=== PATIENT | female | born 1990 | race African-American/Black ===

== ENCOUNTER 2019-01-30 08:31 | Observation (INO) | payer MEDICAID ==
[2019-01-30] MEDS ORDERED: NORMAL SALINE 1000 ML 1,000 ML IV ONE ×2 (09:12→09:40)
[2019-01-30] MEDS ORDERED: ONDANSETRON HCL INJ/PF 4 MG/2 ML SDV IV ONE (09:13)
[2019-01-30] MEDS ORDERED: MORPHINE SULFATE 10 MG/ML INJ IV ONE (09:13)
--- NOTE | 2019-01-30 09:19 | ER Document Report ---
ED General - General Chief Complaint: Abscess Stated Complaint: POSSIBLE ABSCESS Time Seen by Provider: 01/30/19 08:53 Notes: 28-year-old female with past medical history of diabetes on insulin presents with abscess to right buttock for 4 days. Patient states it started off as a "small pimple" and has progressively gotten worse. Patient states it is draining. Patient states she has had a subjective fever, nausea, right lower pelvic/abdominal pain. Patient states she has had an abscess to her jaw that required surgical intervention previously. Patient states she has not been checking her blood sugars for the last couple days. TRAVEL OUTSIDE OF THE [place] IN LAST 30 DAYS: No - Related Data Allergies/Adverse Reactions: tramadol [Tramadol] Allergy (Unknown, Verified 10/17/13 21:32) Bee Sting Kit *RETIRED-04/21/10 [Bee Sting Kit] Allergy (Verified 10/17/13 21:32) Coconut * [Coconut] Allergy (Verified 10/17/13 21:32) pineapple [Pineapple] Allergy (Verified 10/17/13 21:32) Past Medical History - Social History Smoking Status: Never Smoker Chew tobacco use (# tins/day): No Frequency of alcohol use: None Drug Abuse: None Family History: Reviewed & Not Pertinent Patient has suicidal ideation: No Patient has homicidal ideation: No - Past Medical History Cardiac Medical History: Reports: Hx Hypertension Pulmonary Medical History: Reports: Hx Asthma Neurological Medical History: Reports: Hx Migraine Endocrine Medical History: Reports: Hx Diabetes Mellitus Type 2 - insulin dependent Renal/ Medical History: Reports: Hx Ovarian Cysts GI Medical History: Reports: Hx Gastroesophageal Reflux Disease Musculoskeletal Medical History: Reports Hx Arthritis Psychiatric Medical History: Reports: Hx Anxiety, Hx Depression - Immunizations Immunizations up to date: Yes Hx Diphtheria, Pertussis, Tetanus Vaccination: Yes Review of Systems - Review of Systems Notes: Constitutional: Positive for subjective fever. HENT: Negative for sore throat. Eyes: Negative for visual changes. Cardiovascular: Negative for chest pain. Respiratory: Negative for shortness of breath. Gastrointestinal: Positive for nausea. Negative for vomiting or diarrhea. Genitourinary: Negative for dysuria. Musculoskeletal: Negative for back pain. Skin: Negative for rash. Neurological: Negative for headaches, weakness or numbness. 10 point ROS negative except as marked above and in HPI. Positive for abscess. Physical Exam - Vital signs Vitals: Temp Pulse Resp BP Pulse Ox 98.0 F 106 H 18 117/74 98 01/30/19 08:40 01/30/19 08:40 01/30/19 08:40 01/30/19 08:40 01/30/19 08:40 - Notes Notes: GENERAL: Well-appearing, well-nourished and uncomfortable. HEAD: Atraumatic, normocephalic. EYES: Extraocular movements intact, sclera anicteric, conjunctiva are normal. NECK: Normal range of motion, supple without lymphadenopathy or JVD. LUNGS: Breath sounds clear to auscultation bilaterally and equal. No wheezes rales or rhonchi. HEART: Regular rate and rhythm without murmurs, rubs or gallops. ABDOMEN: Soft, nontender, normoactive bowel sounds. No guarding, no rebound. No masses appreciated. : Large indurated area with erythema noted right lower buttock extending to near rectum. Area is warm to touch. Opening noted with mild discharge. Odor noted. EXTREMITIES: Normal range of motion, no pitting or edema. No clubbing or cyanosis. NEUROLOGICAL: Cranial nerves II through XII grossly intact. Normal speech, normal gait. PSYCH: Normal mood, normal affect. SKIN: Warm, Dry, normal turgor, no rashes or lesions noted. Course - Re-evaluation Re-evalutation: 01/30/19 28-year-old diabetic on insulin female presents for abscess to right buttock for 4 days. Patient has not been checking her blood sugars the last couple days. Patient states it started off as a "small pimple" and has progressively gotten worse. Right lower buttock has a large area of induration and erythema that extends near rectum. Concern for involvement of rectum. CT with IV contrast ordered. Lab work also initiated. Morphine and Zofran ordered. 01/30/19 09:45 Accucheck 479. 2nd IV bolus ordered. 01/30/19 10:49 WBC elevated. Chemistry shows AG of 11 with elevated blood sugar. Insulin 10 units IV ordered. Pt also requesting more pain medications. Dilaudid ordered. 01/30/19 12:[address] Nair who states to admit pt for observation. Clindamycin IV ordered. Discussed results and admission with pt. Pt asking for more pain medication. 01/30/19 12:[address] Witt who states pt will go to [facility]. 01/30/19 12:51 Discussed pt with JOSSELYN Rodriguez who states pt can go to medical floor. - Vital Signs Vital signs: Temp Pulse Resp BP Pulse Ox 98.0 F 106 H 12 122/78 99 01/30/19 08:40 01/30/19 08:40 01/30/19 11:08 01/30/19 11:08 01/30/19 11:08 - Laboratory Result Diagrams: 01/30/19 09:24 01/30/19 09:24 Laboratory results interpreted by me: 01/30/19 01/30/19 01/30/19 09:14 09:24 09:24 WBC 22.4 H Seg Neuts % (Manual) 80 H Lymphocytes % (Manual) 11 L Abs Neuts (Manual) 17.9 H Abs Monocytes (Manual) 1.8 H Sodium 130.3 L Chloride 96 L Creatinine 0.37 L Glucose 456 H* POC Glucose Total Bilirubin 1.7 H Alkaline Phosphatase 132 H Urine Glucose (UA) >=500 H Urine Ketones 80 H Leukocyte Esterase Rfl SMALL H 01/30/19 01/30/19 09:33 11:39 WBC Seg Neuts % (Manual) Lymphocytes % (Manual) Abs Neuts (Manual) Abs Monocytes (Manual) Sodium Chloride Creatinine Glucose POC Glucose 479 H* 255 H Total Bilirubin Alkaline Phosphatase Urine Glucose (UA) Urine Ketones Leukocyte Esterase Rfl Discharge - Discharge Clinical Impression: Cellulitis of right buttock, Hyperglycemia Condition: Stable Disposition: ADMITTED OBSERVATION Admitting Provider: Eduar (Hospitalist) Unit Admitted: Medical Floor
[2019-01-30 10:10] LABS: APPEARANCE,URINE SLIGHTLY-CLOUDY; BILIRUBIN,URINE NEGATIVE (NEGATIVE); COLOR,URINE YELLOW; GLUCOSE, URINE >=500 mg/dL (NEGATIVE); KETONES,URINE 80 mg/dL (NEGATIVE); PROTEIN,URINE NEGATIVE (NEGATIVE); URINE SPECIFIC GRAVITY 1.035; UROBILINOGEN,URINE NEGATIVE mg/dL (<2.0)
[2019-01-30 10:12] LABS: HEMATOCRIT 39.4 % (36.0-47.0); HEMOGLOBIN 13.5 g/dL (12.0-15.5); MEAN CORPUSCULAR HEMOGLOBIN 29.1 pg (27.0-33.4); MEAN CORPUSCULAR HGB CONC 34.3 g/dL (32.0-36.0); MEAN CORPUSCULAR VOLUME 85 fl (80-97); PLATELET COUNT 366 10^3/uL (150-450); RED BLOOD COUNT 4.65 10^6/uL (3.72-5.28); RED CELL DISTRIBUTION WIDTH 12.9 % (11.5-14.0); WHITE BLOOD COUNT 22.4 10^3/uL (4.0-10.5)
[2019-01-30 10:19] LABS: ALBUMIN 3.7 g/dL (3.5-5.0); ALKALINE PHOSPHATASE 132 U/L (38-126); ANION GAP 11 (5-19); ASPARTATE AMINO TRANSFERASE 21 U/L (14-36); BILIRUBIN,DIRECT 0.3 mg/dL (0.0-0.4); BILIRUBIN,TOTAL 1.7 mg/dL (0.2-1.3); BLOOD UREA NITROGEN 8 mg/dL (7-20); CALCIUM 9.1 mg/dL (8.4-10.2); CARBON DIOXIDE 23 mmol/L (22-30); CHLORIDE 96 mmol/L (98-107); POTASSIUM 4.5 mmol/L (3.6-5.0)
[2019-01-30 10:33] LABS: GLUCOSE 456 mg/dL (75-110)
[2019-01-30] MEDS ORDERED: HYDROMORPHONE HCL INJ/PF 2 MG/ML AMPULE IV ONE ×2 (10:47→13:02)
[2019-01-30] MEDS ORDERED: INSULIN REG, HUMAN 100 UNIT/ML 3 ML VIAL (PYX) IV ONE (10:48)
[2019-01-30 10:49] LABS: ABSOLUTE LYMPHOCYTES# (MANUAL) 2.5 10^3/uL (0.5-4.7); ABSOLUTE MONOCYTES # (MANUAL) 1.8 10^3/uL (0.1-1.4); BASOPHILS % (MANUAL) 0 % (0-2); EOSINOPHILS % (MANUAL) 1 % (0-6); LYMPHOCYTES % (MANUAL) 11 % (13-45); MONOCYTES % (MANUAL) 8 % (3-13); SEGMENTED NEUTROPHILS % (MAN) 80 % (42-78); TOTAL CELLS COUNTED 100
[2019-01-30 10:50] LABS: PLATELET COMMENT ADEQUATE; RBC MORPHOLOGY COMMENT NORMO-CYTIC/CHROMIC; TOXIC GRANULATION SLIGHT; TOXIC VACUOLATION PRESENT
--- NOTE | 2019-01-30 11:21 | RADIOLOGY REPORT (SQ) ---
EXAM DESCRIPTION: CT ABD/PELVIS WITH IV ONLY COMPLETED DATE/TIME: 01/30/2019 11:01 am REASON FOR STUDY: abscess to right buttock near rectum, pain to RLQ COMPARISON: None. TECHNIQUE: CT scan of the abdomen and pelvis performed using helical scanning technique with dynamic intravenous contrast injection. No oral contrast. Images reviewed with lung, soft tissue, and bone windows. Reconstructed coronal and sagittal MPR images reviewed. Delayed images for evaluation of the urinary system also acquired. All images stored on PACS. All CT scanners at this facility use dose modulation, iterative reconstruction, and/or weight based d osing when appropriate to reduce radiation dose to as low as reasonably achievable (ALARA). [facility]: Dose Right [facility]: CareDose [facility]: Dose Right [facility]: Teradose 4D [facility]: LUMI Mask CONTRAST TYPE AND DOSE: contrast/concentration: Isovue 350.00 mg/ml; Total Contrast Delivered: 100.0 ml; Total Saline Delivered: 47.5 ml RENAL FUNCTION: None required. The patient is less than 50 years old. RADIATION DOSE: CT Rad equipment meets quality standard of care and radiation dose reduction techniq ues were employed. CTDIvol: 9.5 - 13.4 mGy. DLP: 1284 mGy-cm.. LIMITATIONS: None. FINDINGS: LOWER CHEST: No significant findings. No nodules or infiltrates. LIVER: Normal size. No masses. No dilated ducts. SPLEEN: Normal size. No focal lesions. PANCREAS: No masses. No significant calcifications. No adjacent inflammation or peripancreatic fluid collections. Pancreatic duct not dilated. GALLBLADDER: No identified stones by CT criteria. No inflammatory changes to suggest cholecystitis. ADRENAL GLANDS: No significant masses or asymmetry. RIGHT KIDNEY AND URETER: No solid masses. No significant calcifications. No hydronephrosis or hyd roureter. LEFT KIDNEY AND URETER: No solid masses. No significant calcifications. No hydronephrosis or hydr oureter. AORTA AND VESSELS: No aneurysm. No dissection. Renal arteries, SMA, celiac without stenosis. RETROPERITONEUM: No retroperitoneal adenopathy, hemorrhage or masses. BOWEL AND PERITONEAL CAVITY: No masses or inflammatory changes. No free fluid or peritoneal masses. APPENDIX: Normal. PELVIS: Unremarkable urinary bladder. No evidence of intrapelvic abscess. No large volume pelvic fl uid. Unremarkable uterus. No adenopathy. ABDOMINAL WALL: There is ill-defined stranding and asymmetric soft tissue density within the right pe rirectal /perineum without focal drainable collection identified. Of note, proximal thighs are exclu ded by collimation. No focal masses. No hernias. BONES: No acute bony abnormality. No suspicious lytic or blastic osseous lesions. IMPRESSION: 1. Ill-defined stranding and asymmetric soft tissue density within the right perirectal / perineum soft tissue without focal drainable collection identified suggestive of cellulitis. Of no te, this area is not completely imaged and proximal thighs are excluded by collimation. No evidence of deep pelvic abscess. 2. No other evidence of acute intra-abdominal/pelvic process. TECHNICAL DOCUMENTATION: JOB ID: [id number] Quality ID # [id number]: Final reports with documentation of one or more dose reduction techniques (e.g., Au tomated exposure control, adjustment of the mA and/or kV according to patient size, use of iterative reconstruction technique) 2010 [employer]- All Rights Reserved Reading location - IP/workstation name: [email or web address]
[2019-01-30] MEDS ORDERED: CLINDAMYCIN 900 MG/D5W RTU 900 MG/50 ML RTUPB IV ONE (12:32)
[2019-01-30] MEDS ORDERED: GLUCAGON,HUMAN RECOMB 1 MG INJ SUBCUT PRN (13:58)
[2019-01-30] MEDS ORDERED: DEXTROSE 40% GEL 15 GM TUBE PO PRN ×2 (13:58)
[2019-01-30] MEDS ORDERED: DEXTROSE 50%-WATER 25 GM/50 ML DISP.SYRIN IV PRN ×2 (13:58)
[2019-01-30] MEDS ORDERED: PROMETHAZINE HCL INJ 25 MG/1 ML VIAL IV PRN ×2 (14:09→17:53)
[2019-01-30] MEDS ORDERED: NORMAL SALINE 1000 ML 1,000 ML IV PRN (14:09)
[2019-01-30] MEDS ORDERED: MAG HYDROX/AL HYDROX/SIMETH SUSP 30 ML UDCUP PO PRN (14:09)
[2019-01-30] MEDS ORDERED: ALBUTEROL SULFATE 0.083% NEB 2.5 MG/3 ML AMPUL NEB PRN (14:09)
[2019-01-30] MEDS ORDERED: ACETAMINOPHEN 325 MG TABLET PO PRN (14:09)
[2019-01-30] MEDS ORDERED: ONDANSETRON HCL INJ/PF 4 MG/2 ML SDV IV PRN ×2 (14:09→17:53)
[2019-01-30] MEDS ORDERED: DIPHENHYDRAMINE HCL 25 MG CAPSULE PO PRN (14:17)
--- NOTE | 2019-01-30 14:27 | PDOC H&P ---
History of Present Illness Admission Date/PCP: 01/30/19 13:39 Patient complains of: Right buttocks abscess, hyperglycemia History of Present Illness: DENISE GUTIERREZ is a 28 year old female with a past medical history of insulin-dependent diabetes mellitus, asthma, seizure disorder (not on Keppra) neuropathy, rheumatoid arthritis, PCOS/endometriosis who presented to the emergency department today with complaint of right buttocks abscess, hyperglycemia, subjective fevers/chills, nausea and vomiting x 2 days. Evaluation in the emergency department revealed mild tachycardia, leukocytosis (WBC 22.4), hyponatremia (130.3), hyperglycemia (456), nml lactate, neg urinalysis, and CT imaging that reveals an ill-defined asymmetric soft tissue density within the right perirectal/perineum soft tissue without focal drainable collection suggestive of cellulitis. The patient is provided 2 L normal saline, insulin, IV clindamycin, and referred to the hospitalist service for admission and management of the above-stated complaints of findings. Past Medical History Cardiac Medical History: Reports: Hypertension Pulmonary Medical History: Reports: Asthma EENT Medical History: Reports: None Neurological Medical History: Reports: Migraine, Seizures Endocrine Medical History: Reports: Diabetes Mellitus Type 2 - insulin dep endent, Obesity GI Medical History: Reports: Gastroesophageal Reflux Disease Musculoskeltal Medical History: Reports: Arthritis Skin Medical History: Reports: None Psychiatric Medical History: Reports: Depression, Tobacco Dependency Past Surgical History Past Surgical History: Reports: None Social History Information Source: Patient Lives with: Family Smoking Status: Current Every Day Smoker Cigarettes Packs Per Day: 0.1 Electronic Cigarette use?: No Frequency of Alcohol Use: None Hx Recreational Drug Use: No Hx Prescription Drug Abuse: No - Advance Directive Resuscitation Status: Full Code Family History Family History: Reviewed & Not Pertinent Parental Family History Reviewed: Yes Children Family History Reviewed: Yes Sibling(s) Family History Reviewed.: Yes Medication/Allergy Allergies/Adverse Reactions: tramadol [Tramadol] Allergy (Unknown, Verified 10/17/13 21:32) Bee Sting Kit *RETIRED-04/21/10 [Bee Sting Kit] Allergy (Verified 10/17/13 21:32) Coconut * [Coconut] Allergy (Verified 10/17/13 21:32) pineapple [Pineapple] Allergy (Verified 10/17/13 21:32) Review of Systems Constitutional: PRESENT: chills, fatigue, fever(s), weakness. ABSENT: headache(s), weight gain, weight loss Eyes: ABSENT: visual disturbances Ears: ABSENT: hearing changes Cardiovascular: ABSENT: chest pain, dyspnea on exertion, edema, orthropnea, palpitations Respiratory: ABSENT: cough, hemoptysis Gastrointestinal: PRESENT: nausea, vomiting. ABSENT: abdominal pain, constipat ion, diarrhea, hematemesis, hematochezia Genitourinary: ABSENT: dysuria, hematuria Musculoskeletal: ABSENT: joint swelling Integumentary: PRESENT: as per HPI, wounds. ABSENT: rash Neurological: ABSENT: abnormal gait, abnormal speech, confusion, dizziness, focal weakness, syncope Psychiatric: ABSENT: anxiety, depression, homidical ideation, suicidal ideation Endocrine: ABSENT: cold intolerance, heat intolerance, polydipsia, polyuria Hematologic/Lymphatic: ABSENT: easy bleeding, easy bruising Physical Exam Vital Signs: Temp Pulse Resp BP Pulse Ox 98.0 F 106 H 16 115/66 97 01/30/19 08:40 01/30/19 08:40 01/30/19 13:01 01/30/19 13:01 01/30/19 13:01 Intake & Output 01/29/19 01/30/19 01/31/19 06:59 06:59 06:59 Intake Total 1999 Balance 1999 Weight 87.997 kg General appearance: PRESENT: no acute distress, cooperative, obese, well- developed, well-nourished Head exam: PRESENT: atraumatic, normocephalic Eye exam: PRESENT: conjunctiva pink, EOMI, PERRLA. ABSENT: scleral icterus Ear exam: PRESENT: normal external ear exam Mouth exam: PRESENT: moist, tongue midline Neck exam: ABSENT: carotid bruit, JVD, lymphadenopathy, thyromegaly Respiratory exam: PRESENT: clear to auscultation red, symmetrical, unlabored. ABSENT: rales, rhonchi, wheezes Cardiovascular exam: PRESENT: RRR, +S1, +S2, tachycardia. ABSENT: diastolic murmur, rubs, systolic murmur Pulses: PRESENT: normal dorsalis pedis pul Vascular exam: PRESENT: normal capillary refill GI/Abdominal exam: PRESENT: normal bowel sounds, soft. ABSENT: distended, guarding, mass, organolmegaly, rebound, tenderness Rectal exam: PRESENT: deferred Extremities exam: PRESENT: full ROM. ABSENT: calf tenderness, clubbing, pedal edema Musculoskeletal exam: PRESENT: ambulatory Neurological exam: PRESENT: alert, awake, oriented to person, oriented to place, oriented to time, oriented to situation, CN II-XII grossly intact. ABSENT: motor sensory deficit Psychiatric exam: PRESENT: appropriate affect, normal mood. ABSENT: homicidal ideation, suicidal ideation Skin exam: PRESENT: dry, warm, other - Right buttocks cellulitis with 3 cm round indurated area, central opening measuring 0.5 cm, actively draining purulent fluid.. ABSENT: cyanosis, intact, rash Results Laboratory Results: 01/30/19 09:24 01/30/19 09:24 01/30/19 01/30/19 01/30/19 09:14 09:24 09:24 WBC 22.4 H RBC 4.65 Hgb 13.5 Hct 39.4 MCV 85 MCH 29.1 MCHC 34.3 RDW 12.9 Plt Count 366 Seg Neutrophils % Not Reportable Sodium 130.3 L Potassium 4.5 Chloride 96 L Carbon Dioxide 23 Anion Gap 11 BUN 8 Creatinine 0.37 L Est GFR ( Amer) > 60 Glucose 456 H* Calcium 9.1 Total Bilirubin 1.7 H AST 21 Alkaline Phosphatase 132 H Total Protein 7.0 Albumin 3.7 Urine Color YELLOW Urine Appearance SLIGHTLY-CLOUDY Urine pH 6.0 Ur Specific [place] 1.035 Urine Protein NEGATIVE Urine Glucose (UA) >=500 H Urine Ketones 80 H Urine Blood NEGATIVE Urine RBC (Auto) 3 Impressions: Abdomen/Pelvis CT 01/30/19 09:12 IMPRESSION: 1. Ill-defined stranding and asymmetric soft tissue density within the right perirectal/ perineum soft tissue without focal drainable collection identified suggestive of cellulitis. Of note, this area is not completely imaged and proximal thighs are excluded by collimation. No evidence of deep pelvic abscess. 2. No other evidence of acute intra-abdominal/pelvic process. Assessment and Plan - Diagnosis (1) Abscess of right buttock Is this a current diagnosis for this admission?: Yes Plan: Admit to the medical floor. Blood and wound cultures are pending. Continue gentle IVF. Continue IV Clindamycin; no known hx of MRSA Analgesics as needed. N.p.o. status. Surgery has been consulted; appreciate Dr. Graves's evaluation and recommendations. (2) Diabetes Qualifiers: Diabetes mellitus type: type 2 Diabetes mellitus termite control technician insulin use: with longterm use Diabetes mellitus complication status: with hyperglycemia Qualified Code(s): E11.65 - Type 2 diabetes mellitus with hyperglycemia; Z79.4 - joint terminal attack controller (current) use of insulin Is this a current diagnosis for this admission?: Yes Plan: We will check A1c with a.m. lab work. Currently n.p.o. pending surgical evaluation for #1. Accu-Cheks every 6 hours with sliding scale insulin. Hypoglycemia protocol. Registered dietitian music educator consulted. (3) Leukocytosis Is this a current diagnosis for this admission?: Yes Plan: Secondary to #1. Cultures and antibiotics as above. (4) Cellulitis of right buttock Is this a current diagnosis for this admission?: Yes Plan: Related to #1. Cultures and antibiotics as above. Remaining management as above. (5) Seizure disorder Is this a current diagnosis for this admission?: Yes Plan: Continue home dose Keppra. (6) Nausea and vomiting Is this a current diagnosis for this admission?: Yes Plan: Secondary to #1 with hyperglycemia. Continue gentle IV fluids. Antiemetics as needed. - Time Time Spent with patient: 35 or more minutes Medications reviewed and adjusted accordingly: Yes Anticipated discharge: Home Within: within 72 hours - Inpatient Certification Based on my medical assessment, after consideration of the patient's comorbidities, presenting symptoms, or acuity I expect that the services needed warrant INPATIENT care.: Yes I certify that my determination is in accordance with my understanding of Medicare's requirements for reasonable and necessary INPATIENT services [42 CFR 412.3e].: Yes Medical Necessity: Significant Comorbidiites Make Outpatient Treatment Too Risky, Need For IV Fluids, Need for IV Antibiotics, Need for Surgery, Risk of Complication if Not Cared For in Hospital
--- NOTE | 2019-01-30 15:43 | PDOC CONSULTATION ---
Consultation Consult Date: 01/30/19 Provider Consulted: AFSHAN CASTRO Consult reason:: Right buttock abscess History of Present Illness Admission Date/PCP: 01/30/19 13:39 History of Present Illness: DENISE GUTIERREZ is a 28 year old female seen at the request of the hospitalist service. She has a 4-day history of pain and swelling of the right buttock. 2 days ago the area ruptured and began draining. The patient still complains of severe right buttock pain, redness, and persistent drainage. She has had subjective fevers and chills. Her pain is 9 out of 10. Nothing makes her pain better. Palpation makes it worse. Her pain does not radiate. She denies nausea, vomiting, chest pain, shortness of breath, dizziness, orthostasis, fatigue, or malaise. The patient is a diabetic, but does not check her sugars. Past Medical History Cardiac Medical History: Reports: Hypertension Pulmonary Medical History: Reports: Asthma EENT Medical History: Reports: None Neurological Medical History: Reports: Migraine, Seizures Endocrine Medical History: Reports: Diabetes Mellitus Type 2 - insulin dependent, Obesity GI Medical History: Reports: Gastroesophageal Reflux Disease Musculoskeltal Medical History: Reports: Arthritis Skin Medical History: Reports: None Psychiatric Medical History: Reports: Depression, Tobacco Dependency Past Surgical History Past Surgical History: Reports: None Social History Lives with: Family Smoking Status: Current Every Day Smoker Cigarettes Packs Per Day: 0.1 Electronic Cigarette use?: No Frequency of Alcohol Use: None Hx Recreational Drug Use: No Hx Prescription Drug Abuse: No - Advance Directive Resuscitation Status: Full Code Family History Family History: Reviewed & Not Pertinent Parental Family History Reviewed: Yes Children Family History Reviewed: Yes Sibling(s) Family History Reviewed.: Yes Medication/Allergy Home Medications: Insulin Glargine,Hum.rec.anlog [Lantus Insulin 100 Unit/1 ml 10 ml] 20 unit SQ DAILY 01/30/19 Levetiracetam [Keppra 500 mg Tablet] 500 mg PO Q12 01/30/19 Quetiapine Fumarate [Seroquel 100 mg Tablet] 100 mg PO Q12 01/30/19 Allergies/Adverse Reactions: tramadol [Tramadol] Allergy (Unknown, Verified 10/17/13 21:32) Bee Sting Kit *RETIRED-04/21/10 [Bee Sting Kit] Allergy (Verified 10/17/13 21:32) Coconut * [Coconut] Allergy (Verified 10/17/13 21:32) pineapple [Pineapple] Allergy (Verified 10/17/13 21:32) Review of Systems Constitutional: PRESENT: chills, fever(s). ABSENT: anorexia, fatigue, headache(s) Eyes: ABSENT: visual disturbances Ears: ABSENT: hearing changes Nose, Mouth, and Throat: ABSENT: mouth pain, sore throat Cardiovascular: ABSENT: chest pain Respiratory: ABSENT: cough Gastrointestinal: ABSENT: abdominal pain Musculoskeletal: ABSENT: back pain Integumentary: ABSENT: diaphoresis Neurological: ABSENT: confusion, convulsions, dizziness Psychiatric: PRESENT: anxiety. ABSENT: depression Endocrine: ABSENT: cold intolerance, heat intolerance Hematologic/Lymphatic: ABSENT: easy bleeding, easy bruising Allergic/Immunologic: ABSENT: seasonal rhinorrhea Physical Exam Vital Signs: Temp Pulse Resp BP Pulse Ox 98.5 F 106 H 18 125/85 97 01/30/19 15:01 01/30/19 08:40 01/30/19 15:01 01/30/19 15:01 01/30/19 13:01 Intake & Output 01/29/19 01/30/19 01/31/19 06:59 06:59 06:59 Intake Total 2049 Balance 2049 Weight 87.997 kg General appearance: PRESENT: cooperative, mild distress - Buttock pain Head exam: PRESENT: atraumatic, normocephalic Eye exam: PRESENT: EOMI, PERRLA. ABSENT: scleral icterus Mouth exam: PRESENT: moist, neck supple Neck exam: ABSENT: tenderness, thyromegaly, tracheal deviation Respiratory exam: PRESENT: unlabored. ABSENT: chest wall tenderness, tachypnea, wheezes Cardiovascular exam: PRESENT: RRR Pulses: PRESENT: normal radial pulses Vascular exam: PRESENT: normal capillary refill GI/Abdominal exam: PRESENT: soft. ABSENT: distended, firm, rigid, tenderness Rectal exam: PRESENT: deferred Extremities exam: ABSENT: clubbing Musculoskeletal exam: ABSENT: deformity Neurological exam: PRESENT: alert, awake, oriented to person, oriented to place, oriented to time, oriented to situation, CN II-XII grossly intact. ABSENT: motor sensory deficit Psychiatric exam: PRESENT: anxious. ABSENT: agitated, depressed Focused psych exam: ABSENT: delusional Skin exam: PRESENT: erythema - Right inferior buttock, warm - Right inferior buttock, other - Abscess with fluctuance to right inferior buttock. There is a small open area draining purulent material.. ABSENT: cyanosis Results Laboratory Results: 01/30/19 09:24 01/30/19 09:24 01/30/19 01/30/19 01/30/19 09:14 09:24 09:24 WBC 22.4 H RBC 4.65 Hgb 13.5 Hct 39.4 MCV 85 MCH 29.1 MCHC 34.3 RDW 12.9 Plt Count 366 Seg Neutrophils % Not Reportable Sodium 130.3 L Potassium 4.5 Chloride 96 L Carbon Dioxide 23 Anion Gap 11 BUN 8 Creatinine 0.37 L Est GFR ( Amer) > 60 Glucose 456 H* Calcium 9.1 Total Bilirubin 1.7 H AST 21 Alkaline Phosphatase 132 H Total Protein 7.0 Albumin 3.7 Urine Color YELLOW Urine Appearance SLIGHTLY-CLOUDY Urine pH 6.0 Ur Specific [place] 1.035 Urine Protein NEGATIVE Urine Glucose (UA) >=500 H Urine Ketones 80 H Urine Blood NEGATIVE Urine RBC (Auto) 3 Impressions: Abdomen/Pelvis CT 01/30/19 09:12 IMPRESSION: 1. Ill-defined stranding and asymmetric soft tissue density within the right perirectal/ perineum soft tissue without focal drainable collection identified suggestive of cellulitis. Of note, this area is not completely imaged and proximal thighs are excluded by collimation. No evidence of deep pelvic abscess. 2. No other evidence of acute intra-abdominal/pelvic process. Assessment & Plan - Diagnosis (1) Abscess of right buttock Is this a current diagnosis for this admission?: Yes - Plan Summary Plan Summary: This is a 28-year-old female with a right buttock abscess. She is diabetic. I have recommended tight glucose control, intravenous antibiotics, and incision and drainage in the operating room. The patient has agreed to this. Risks/benefits discussed, informed consent obtained, and all questions answered.
[2019-01-30] MEDS ORDERED: LIDOCAINE 2% INJ-PF (20 MG/ML) 10 ML AMPUL ONE (17:11)
[2019-01-30] MEDS ORDERED: MIDAZOLAM 2 MG/2 ML INJ ONE (17:12)
[2019-01-30] MEDS ORDERED: FENTANYL CITRATE INJ/PF 100 MCG/2 ML AMPUL ONE (17:12)
[2019-01-30] MEDS ORDERED: PROPOFOL INJ 200 MG/20 ML VIAL IV ONE (17:12)
[2019-01-30] MEDS ORDERED: METOCLOPRAMIDE HCL INJ/PF 10 MG/2 ML SDV ONE (17:27)
[2019-01-30] MEDS ORDERED: FAMOTIDINE INJ/PF 20 MG/2 ML SDV IV ONE (17:27)
[2019-01-30] MEDS ORDERED: BUPIVACAINE HCL 0.25 % INJ/PF (2.5 MG/1 ML) 30 ML VIAL ONE (17:39)
[2019-01-30] MEDS ORDERED: DIPHENHYDRAMINE HCL 50 MG/ML VIAL IV PRN (17:53)
[2019-01-30] MEDS ORDERED: FENTANYL CITRATE INJ/PF 100 MCG/2 ML AMPUL IV PRN ×3 (17:53)
[2019-01-30] MEDS: KETOROLAC TROMETHAMINE INJ/PF 30 MG/1 ML SDV IV PRN (19:04)
--- NOTE | 2019-01-30 21:46 | Operative Report ---
Nonrecallable Operative Report DATE OF SURGERY: 01/30/19 PREOPERATIVE DIAGNOSIS: Right buttock abscess POSTOPERATIVE DIAGNOSIS: Same as above OPERATION: 1. Incision and drainage of right buttock abscess. 2. Sharp, excisional debridement of skin and fatty soft tissue associated with the abscess, approximately 10 cm SURGEON: AFSHAN CASTRO ANESTHESIA: GA TISSUE REMOVED OR ALTERED: Necrotic skin and fatty tissue COMPLICATIONS: None apparent ESTIMATED BLOOD LOSS: Minimal PROCEDURE: Drains/implants: Kerlix soaked in Betadine. Procedure in detail: After informed consent was obtained, the patient was brought to the operating room and laid in the right lateral decubitus position. The area of the right buttock was prepped and draped in a normal sterile fashion. An incision was created over the area of maximal fluctuance. An abscess cavity was identified. Sharp, excisional debridement was then undertaken in order to remove all of the necrotic skin and fatty tissue around the abscess cavity. Cultures were taken. Once this was completed, the wound was irrigated and packed with Betadine soaked Kerlix. A dressing was placed, and the procedure was concluded. All sponge, instrument, and needle counts were correct x2. Condition: Stable.
[2019-01-30] MEDS: HEPARIN SOD (PORCINE) 5,000 UNIT/ML 1 ML VIAL SUBCUT SCH (22:11)
[2019-01-30] MEDS: QUETIAPINE FUMARATE 100 MG TABLET PO SCH (22:23)
[2019-01-30] MEDS: FAMOTIDINE 20 MG TABLET PO SCH (22:23)
[2019-01-30] MEDS: OXYCODONE-ACETAMINOPHEN 5-325 MG TABLET PO PRN (22:23)
[2019-01-30] MEDS: LEVETIRACETAM 500 MG TABLET PO SCH (22:23)
[2019-01-30] MEDS: CLINDAMYCIN 900 MG/D5W RTU 900 MG/50 ML RTUPB IV SCH (22:25)
[2019-01-30] MEDS: INSULIN LISPRO 100 UNIT/ML 3 ML VIAL SUBCUT SCH ×2 (22:25→23:09)
[2019-01-31] MEDS: KETOROLAC TROMETHAMINE INJ/PF 30 MG/1 ML SDV IV PRN ×2 (02:23→14:48)
[2019-01-31 04:45] LABS: ABSOLUTE EOSINOPHILS # (AUTO) 0.1 10^3/uL (0.0-0.6); ABSOLUTE LYMPHOCYTES (AUTO) 1.6 10^3/uL (0.5-4.7); ABSOLUTE MONOCYTES (AUTO) 0.8 10^3/uL (0.1-1.4); ABSOLUTE NEUT (AUTO) 11.3 10^3/uL (1.7-8.2); BASOPHILS % (AUTO) 0.3 % (0-2); EOSINOPHILS % (AUTO) 0.8 % (0-6); HEMOGLOBIN 12.6 g/dL (12.0-15.5); LYMPHOCYTES % (AUTO) 11.7 % (13-45); MEAN CORPUSCULAR HEMOGLOBIN 28.7 pg (27.0-33.4); MEAN CORPUSCULAR VOLUME 84 fl (80-97); MONOCYTES % (AUTO) 5.7 % (3-13); PLATELET COUNT 309 10^3/uL (150-450); RED BLOOD COUNT 4.38 10^6/uL (3.72-5.28); RED CELL DISTRIBUTION WIDTH 12.7 % (11.5-14.0); SEGMENTED NEUTROPHILS % (AUTO) 81.5 % (42-78); TOTAL CELLS COUNTED % (AUTO) 100 %; WHITE BLOOD COUNT 13.8 10^3/uL (4.0-10.5)
[2019-01-31 05:10] LABS: ALBUMIN 2.8 g/dL (3.5-5.0); ALKALINE PHOSPHATASE 116 U/L (38-126); ANION GAP 8 (5-19); ASPARTATE AMINO TRANSFERASE 13 U/L (14-36); BILIRUBIN,DIRECT 0.2 mg/dL (0.0-0.4); BILIRUBIN,TOTAL 0.5 mg/dL (0.2-1.3); BLOOD UREA NITROGEN 8 mg/dL (7-20); CALCIUM 8.7 mg/dL (8.4-10.2); CARBON DIOXIDE 24 mmol/L (22-30); CHLORIDE 105 mmol/L (98-107); GLUCOSE 355 mg/dL (75-110); POTASSIUM 4.3 mmol/L (3.6-5.0); TOTAL PROTEIN 5.5 g/dL (6.3-8.2)
[2019-01-31] MEDS: CLINDAMYCIN 900 MG/D5W RTU 900 MG/50 ML RTUPB IV SCH ×3 (05:57→22:24)
[2019-01-31] MEDS: HEPARIN SOD (PORCINE) 5,000 UNIT/ML 1 ML VIAL SUBCUT SCH ×3 (05:57→22:17)
[2019-01-31] MEDS: INSULIN LISPRO 100 UNIT/ML 3 ML VIAL SUBCUT SCH ×4 (05:58→23:47)
[2019-01-31] MEDS ORDERED: DEXTROSE 40% GEL 15 GM TUBE PO PRN ×6 (07:54→10:47)
[2019-01-31] MEDS ORDERED: DEXTROSE 50%-WATER 25 GM/50 ML DISP.SYRIN IV PRN ×6 (07:54→10:47)
[2019-01-31] MEDS: OXYCODONE-ACETAMINOPHEN 5-325 MG TABLET PO PRN ×2 (07:54→17:44)
[2019-01-31] MEDS ORDERED: GLUCAGON,HUMAN RECOMB 1 MG INJ IM PRN ×3 (07:54→10:47)
[2019-01-31] MEDS ORDERED: INSULIN LISPRO 100 UNIT/ML 3 ML VIAL SUBCUT SCH (08:00)
--- NOTE | 2019-01-31 09:19 | PDOC PROGRESS REPORT ---
Subjective Progress Note for:: 01/31/19 Subjective:: Patient doing well overnight; pain control. Patient continues to have elevated blood sugar levels. Reason For Visit: RIGHT BUTTOCKS ABSCESS,CELLULITIS Physical Exam Vital Signs: Temp Pulse Resp BP Pulse Ox 98.0 F 85 16 120/77 99 01/31/19 07:17 01/31/19 07:17 01/31/19 07:17 01/31/19 07:17 01/31/19 07:17 Intake & Output 01/30/19 01/31/19 02/01/19 06:59 06:59 06:59 Intake Total 3500 Output Total 200 Balance 3300 Weight 87.997 kg General appearance: PRESENT: no acute distress Musculoskeletal exam: PRESENT: other - Rolled left lateral cubitus position. Dressing in packing removed. The wound cavity is reasonably clean, some fibrinous exudate, but no foul smell or active drainage. Surrounding skin and subcutaneous tissue soft. Results Laboratory Results: 01/31/19 04:28 01/31/19 04:28 01/30/19 01/30/19 01/30/19 09:14 09:24 09:24 WBC 22.4 H RBC 4.65 Hgb 13.5 Hct 39.4 MCV 85 MCH 29.1 MCHC 34.3 RDW 12.9 Plt Count 366 Seg Neutrophils % Not Reportable Sodium 130.3 L Potassium 4.5 Chloride 96 L Carbon Dioxide 23 Anion Gap 11 BUN 8 Creatinine 0.37 L Est GFR ( Amer) > 60 Glucose 456 H* Calcium 9.1 Total Bilirubin 1.7 H AST 21 Alkaline Phosphatase 132 H Total Protein 7.0 Albumin 3.7 Urine Color YELLOW Urine Appearance SLIGHTLY-CLOUDY Urine pH 6.0 Ur Specific [place] 1.035 Urine Protein NEGATIVE Urine Glucose (UA) >=500 H Urine Ketones 80 H Urine Blood NEGATIVE Urine RBC (Auto) 3 01/31/19 01/31/19 04:28 04:28 WBC 13.8 H RBC 4.38 Hgb 12.6 Hct 37.0 MCV 84 MCH 28.7 MCHC 34.0 RDW 12.7 Plt Count 309 Seg Neutrophils % 81.5 H Sodium 137.1 Potassium 4.3 Chloride 105 Carbon Dioxide 24 Anion Gap 8 BUN 8 Creatinine 0.37 L Est GFR ( Amer) > 60 Glucose 355 H Calcium 8.7 Total Bilirubin 0.5 AST 13 L Alkaline Phosphatase 116 Total Protein 5.5 L Albumin 2.8 L Urine Color Urine Appearance Urine pH Ur Specific [place] Urine Protein Urine Glucose (UA) Urine Ketones Urine Blood Urine RBC (Auto) Impressions: Abdomen/Pelvis CT 01/30/19 09:12 IMPRESSION: 1. Ill-defined stranding and asymmetric soft tissue density within the right perirectal/ perineum soft tissue without focal drainable collection identified suggestive of cellulitis. Of note, this area is not completely imaged and proximal thighs are excluded by collimation. No evidence of deep pelvic abscess. 2. No other evidence of acute intra-abdominal/pelvic process. Assessment & Plan - Diagnosis (1) Abscess of right buttock Is this a current diagnosis for this admission?: Yes Plan: Impression: Excellent early postoperative course status post debridement right buttock abscess, with wound packing. Cultures pending. Leukocytosis diminished. Persisting hyperglycemia Recommendations: 1. We will start patient on daily dressing changes; week reviewed and orders written. 2. Follow-up on cultures; clinically suspect MRSA. 3. Patient can be managed at home with dressing changes; please instruct on local wound care. 4. Patient to remain hospitalized today for management of persisting hyperglycemia. 5. Have patient follow-up with staff member at [place] [facility] in 1 week following discharge from [facility]. (2) Hyperglycemia Is this a current diagnosis for this admission?: Yes - Time Time Spent with patient: Less than 15 minutes
[2019-01-31] MEDS ORDERED: INSULIN GLARGINE,HUM.REC.ANLOG 1,000 UNIT/10 ML VIAL SUBCUT SCH ×2 (10:00)
--- NOTE | 2019-01-31 10:34 | PDOC PROGRESS REPORT ---
Subjective Progress Note for:: 01/31/19 Subjective:: DENISE GUTIERREZ is a 28 year old female with a past medical history of insulin-dependent diabetes mellitus, asthma, seizure disorder (not on Keppra) neuropathy, rheumatoid arthritis, PCOS/endometriosis who presented to the emergency department today with complaint of right buttocks abscess, hyperglycemia, subjective fevers/chills, nausea and vomiting x 2 days. Evaluation in the emergency department revealed mild tachycardia, leukocytosis (WBC 22.4), hyponatremia (130.3), hyperglycemia (456), nml lactate, neg urinalysis, and CT imaging that reveals an ill-defined asymmetric soft tissue density within the right perirectal/perineum soft tissue without focal drainable collection suggestive of cellulitis. The patient is provided 2 L normal saline, insulin, IV clindamycin, and referred to the hospitalist service for admission and management of the above-stated complaints of findings. 01/31/2019. No acute events overnight. Patient is status post I&D by surgery. Denies any fever, chills, nausea, vomiting, diarrhea, constipation or any urinary symptoms. Patient still having persistent hyperglycemia. Possible discharge after blood sugars are optimized. Reason For Visit: RIGHT BUTTOCKS ABSCESS,CELLULITIS Physical Exam Vital Signs: Temp Pulse Resp BP Pulse Ox 98.0 F 85 16 120/77 99 01/31/19 07:17 01/31/19 07:17 01/31/19 07:17 01/31/19 07:17 01/31/19 07:17 Intake & Output 01/30/19 01/31/19 02/01/19 06:59 06:59 06:59 Intake Total 3500 Output Total 200 Balance 3300 Weight 87.997 kg General appearance: PRESENT: no acute distress, obese, well-developed, well- nourished Head exam: PRESENT: atraumatic, normocephalic Respiratory exam: PRESENT: clear to auscultation red. ABSENT: rales, rhonchi, wheezes Cardiovascular exam: PRESENT: RRR. ABSENT: diastolic murmur, rubs, systolic murmur Neurological exam: PRESENT: alert, awake, oriented to person, oriented to place, oriented to time, oriented to situation, CN II-XII grossly intact. ABSENT: motor sensory deficit Skin exam: PRESENT: other - Wound looks clean. No discharge. Results Laboratory Results: 01/31/19 04:28 01/31/19 04:28 01/30/19 01/30/19 01/31/19 09:24 09:24 04:28 WBC 22.4 H 13.8 H RBC 4.65 4.38 Hgb 13.5 12.6 Hct 39.4 37.0 MCV 85 84 MCH 29.1 28.7 MCHC 34.3 34.0 RDW 12.9 12.7 Plt Count 366 309 Seg Neutrophils % Not Reportable 81.5 H Sodium 130.3 L Potassium 4.5 Chloride 96 L Carbon Dioxide 23 Anion Gap 11 BUN 8 Creatinine 0.37 L Est GFR ( Amer) > 60 Glucose 456 H* Calcium 9.1 Total Bilirubin 1.7 H AST 21 Alkaline Phosphatase 132 H Total Protein 7.0 Albumin 3.7 01/31/19 04:28 WBC RBC Hgb Hct MCV MCH MCHC RDW Plt Count Seg Neutrophils % Sodium 137.1 Potassium 4.3 Chloride 105 Carbon Dioxide 24 Anion Gap 8 BUN 8 Creatinine 0.37 L Est GFR ( Amer) > 60 Glucose 355 H Calcium 8.7 Total Bilirubin 0.5 AST 13 L Alkaline Phosphatase 116 Total Protein 5.5 L Albumin 2.8 L Impressions: Abdomen/Pelvis CT 01/30/19 09:12 IMPRESSION: 1. Ill-defined stranding and asymmetric soft tissue density within the right perirectal/ perineum soft tissue without focal drainable collection identified suggestive of cellulitis. Of note, this area is not completely imaged and proximal thighs are excluded by collimation. No evidence of deep pelvic abscess. 2. No other evidence of acute intra-abdominal/pelvic process. 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 Uncontrolled. Due to noncompliance. Patient recently released from longterm. Cannot afford insulin. Hemoglobin A1c 11.6%. Continue diabetic diet, diabetic education, prandial, basal, and sliding scale insulin. Accu-Chek. Hypoglycemia protocol. Patient says she does not have insurance and will not be able to afford buying insulin. We will switch to 70/30 as it is cheaper. Registered dietitian and supervisor [employer] consulted. (2) Abscess of right buttock Is this a current diagnosis for this admission?: Yes Plan: Likely due to MRSA. Status post I&D by surgery. Day 2 IV antibiotics. Day 2 IV clindamycin. Blood cultures no growth so far. Wound cultures pending. Continue empiric IV antibiotics. Follow-up blood on wound culture. Surgery consulted. Recommendations noted. Possible discharge home with home wound care and follow-up in surgical clinic. (3) Nausea and vomiting Is this a current diagnosis for this admission?: Yes Plan: Resolved. Secondary to #1 with hyperglycemia. Antiemetics as needed. (4) Seizure disorder Is this a current diagnosis for this admission?: Yes Plan: Takes Keppra at home. Restart home meds. Seizure and fall precautions. Outpatient neurology and PCP follow-up. (5) Obesity (BMI 30-39.9) Is this a current diagnosis for this admission?: Yes Plan: Likely dietary related. Denies history of hypothyroidism. We will obtain TSH and lipid panel. Diet and lifestyle modification recommended. Dietitian consulted.
[2019-01-31 11:19] LABS: CHOLESTEROL 174.81 mg/dL (0-200); TRIGLYCERIDES 196 mg/dL (<150)
[2019-01-31 11:30] LABS: DIRECT LDL 131 mg/dL (<100)
[2019-01-31] MEDS: QUETIAPINE FUMARATE 100 MG TABLET PO SCH ×2 (11:30→22:23)
[2019-01-31] MEDS: DOCUSATE SODIUM 100 MG CAPSULE PO SCH (11:30)
[2019-01-31] MEDS: LEVETIRACETAM 500 MG TABLET PO SCH ×2 (11:30→22:23)
[2019-01-31] MEDS: FAMOTIDINE 20 MG TABLET PO SCH ×2 (11:30→22:23)
[2019-01-31 11:46] LABS: VLDL CHOLESTEROL 39.2 mg/dL (10-31)
[2019-01-31] MEDS: HUM INSULIN NPH/REG INSULIN HM 100 UNIT/1 ML 3 ML SUBCUT SCH (17:45)
[2019-01-31] MEDS: MORPHINE SULFATE 10 MG/ML INJ IV PRN (20:46)
[2019-02-01] MEDS: OXYCODONE-ACETAMINOPHEN 5-325 MG TABLET PO PRN ×2 (01:34→08:55)
[2019-02-01] MEDS: HEPARIN SOD (PORCINE) 5,000 UNIT/ML 1 ML VIAL SUBCUT SCH (05:35)
[2019-02-01] MEDS: INSULIN LISPRO 100 UNIT/ML 3 ML VIAL SUBCUT SCH (05:45)
[2019-02-01] MEDS: CLINDAMYCIN 900 MG/D5W RTU 900 MG/50 ML RTUPB IV SCH (05:45)
[2019-02-01] MEDS: HUM INSULIN NPH/REG INSULIN HM 100 UNIT/1 ML 3 ML SUBCUT SCH (07:42)
[2019-02-01 07:45] LABS: ABSOLUTE EOSINOPHILS # (AUTO) 0.2 10^3/uL (0.0-0.6); ABSOLUTE LYMPHOCYTES (AUTO) 1.8 10^3/uL (0.5-4.7); ABSOLUTE MONOCYTES (AUTO) 0.5 10^3/uL (0.1-1.4); ABSOLUTE NEUT (AUTO) 7.2 10^3/uL (1.7-8.2); BASOPHILS % (AUTO) 0.3 % (0-2); EOSINOPHILS % (AUTO) 1.9 % (0-6); HEMATOCRIT 35.9 % (36.0-47.0); HEMOGLOBIN 12.1 g/dL (12.0-15.5); LYMPHOCYTES % (AUTO) 18.7 % (13-45); MEAN CORPUSCULAR HEMOGLOBIN 28.8 pg (27.0-33.4); MEAN CORPUSCULAR HGB CONC 33.8 g/dL (32.0-36.0); MEAN CORPUSCULAR VOLUME 85 fl (80-97); MONOCYTES % (AUTO) 5.1 % (3-13); PLATELET COUNT 344 10^3/uL (150-450); RED BLOOD COUNT 4.21 10^6/uL (3.72-5.28); RED CELL DISTRIBUTION WIDTH 12.9 % (11.5-14.0); TOTAL CELLS COUNTED % (AUTO) 100 %; WHITE BLOOD COUNT 9.8 10^3/uL (4.0-10.5)
[2019-02-01 08:12] LABS: ANION GAP 7 (5-19); BLOOD UREA NITROGEN 8 mg/dL (7-20); CALCIUM 8.4 mg/dL (8.4-10.2); CARBON DIOXIDE 27 mmol/L (22-30); CHLORIDE 103 mmol/L (98-107); GLUCOSE 248 mg/dL (75-110); POTASSIUM 4.1 mmol/L (3.6-5.0)
[2019-02-01] MEDS: MORPHINE SULFATE 10 MG/ML INJ IV PRN (09:12)
[2019-02-01] MEDS: DOCUSATE SODIUM 100 MG CAPSULE PO SCH (09:13)
[2019-02-01] MEDS: QUETIAPINE FUMARATE 100 MG TABLET PO SCH (09:13)
[2019-02-01] MEDS: FAMOTIDINE 20 MG TABLET PO SCH (09:13)
[2019-02-01] MEDS: LEVETIRACETAM 500 MG TABLET PO SCH (09:13)
[2019-02-01 09:37] VITALS: BP 128/73
--- NOTE | 2019-02-02 14:51 | PDOC DISCHARGE SUMMARY ---
Impression - Admit/DC Date/PCP Admission Date/Primary Care Provider: 01/30/19 13:39 Discharge Date: 02/01/19 - Discharge Diagnosis (1) Diabetes Is this a current diagnosis for this admission?: Yes (2) Abscess of right buttock Is this a current diagnosis for this admission?: Yes (3) Nausea and vomiting Is this a current diagnosis for this admission?: Yes (4) Seizure disorder Is this a current diagnosis for this admission?: Yes (5) Obesity (BMI 30-39.9) Is this a current diagnosis for this admission?: Yes - Additional Information Resuscitation Status: Full Code Discharge Diet: As Tolerated Discharge Activity: Activity As Tolerated Referrals: [facility] [Provider Group] (FOLLOW UP IN 1 WEEK) Prescriptions: Clindamycin HCl [Cleocin 150 mg Capsule] 150 mg PO Q8 7 Days #21 capsule Insulin Glargine,Hum.rec.anlog [Lantus Insulin 100 Unit/1 ml 10 ml] 30 unit SQ DAILY 30 Days #1 unit Insulin Aspart [Novolog Flexpen] 0 - 12 unit SUBCUT .SLD SCALE 30 Days #1 pen Oxycodone HCl/Acetaminophen [Percocet 7.5-325 mg Tablet] 1 tab PO Q6 PRN 5 Days #20 tab PRN Reason: Home Medications: Levetiracetam [Keppra 500 mg Tablet] 500 mg PO Q12 01/30/19 Quetiapine Fumarate [Seroquel 100 mg Tablet] 100 mg PO Q12 01/30/19 Clindamycin HCl [Cleocin 150 mg Capsule] 150 mg PO Q8 7 Days #21 capsule 02/01/19 Insulin Aspart [Novolog Flexpen] 0 - 12 unit SUBCUT .SLD SCALE 30 Days #1 pen 02/01/19 Insulin Glargine,Hum.rec.anlog [Lantus Insulin 100 Unit/1 ml 10 ml] 30 unit SQ DAILY 30 Days #1 unit 02/01/19 Oxycodone HCl/Acetaminophen [Percocet 7.5-325 mg Tablet] 1 tab PO Q6 PRN 5 Days #20 tab 02/01/19 History of Present Illiness History of Present Illness: DENISE GUTIERREZ is a 28 year old female with a past medical history of insulin-dependent diabetes mellitus, asthma, seizure disorder (not on Keppra) neuropathy, rheumatoid arthritis, PCOS/endometriosis who presented to the emergency department today with complaint of right buttocks abscess, hyperglycemia, subjective fevers/chills, nausea and vomiting x 2 days. Evaluation in the emergency department revealed mild tachycardia, leukocytosis (WBC 22.4), hyponatremia (130.3), hyperglycemia (456), nml lactate, neg urinalysis, and CT imaging that reveals an ill-defined asymmetric soft tissue density within the right perirectal/perineum soft tissue without focal drainable collection suggestive of cellulitis. The patient is provided 2 L normal saline, insulin, IV clindamycin, and referred to the hospitalist service for admission and management of the above-stated complaints of findings. Hospital Course Hospital Course: (1) Diabetes History of type 1 diabetes. Uncontrolled. Due to noncompliance. Patient recently released from shelter. Stating cannot afford insulin. Hemoglobin A1c 11.6%. Started on diabetic diet, diabetic education, prandial, basal, and sliding scale insulin. Accu-Chek. Hypoglycemia protocol. I was informed by family caseworker that patient has has Medicaid and she will be able to buy her insulin supplies. Patient was discharged on Lantus and sliding scale insulin with diabetic supplies. Registered dietitian and clinical systems educator consulted. (2) Abscess of right buttock Polymicrobial. Consulted surgery. Received I&D. Was started on IV clindamycin. Saved 3 days of IV clindamycin. Discharged on clindamycin 150 mg p.o. 3 times daily for another 7 days. Was advised to follow-up with surgical clinic in 1 week. Wound culture growing polymicrobial sensitivity available at time of dictation. Patient advised to come back to ED if symptoms recur. (3) Nausea and vomiting Resolved. Secondary to #1 with hyperglycemia. Antiemetics as needed. (4) Seizure disorder Takes Keppra at home. Seizure and fall precautions implemented. Did not have any seizure during hospitalization. Advised to restart home meds upon discharge. Outpatient neurology and PCP follow-up. (5) Obesity (BMI 30-39.9) Likely dietary related. TSH WNL. Diet and lifestyle modification recommended. (6) Hyperlipidemia Abnormal lipid panel. Diet and lifestyle modification recommended. Advised to follow-up with PCP for reevaluation of lipids in 6 months. Patient voiced understanding. Physical Exam Vital Signs: Temp Pulse Resp BP Pulse Ox 98.3 F 81 16 128/73 H 96 02/01/19 09:36 02/01/19 09:36 02/01/19 09:36 02/01/19 09:36 02/01/19 09:36 Intake & Output 02/01/19 02/02/19 02/03/19 06:59 06:59 06:59 Intake Total 1750 Balance 1750 Weight 90.1 kg Results Laboratory Results: WBC 9.8 10^3/uL (4.0-10.5) 02/01/19 06:25 RBC 4.21 10^6/uL (3.72-5.28) 02/01/19 06:25 Hgb 12.1 g/dL (12.0-15.5) 02/01/19 06:25 Hct 35.9 % (36.0-47.0) L 02/01/19 06:25 MCV 85 fl (80-97) 02/01/19 06:25 MCH 28.8 pg (27.0-33.4) 02/01/19 06:25 MCHC 33.8 g/dL (32.0-36.0) 02/01/19 06:25 RDW 12.9 % (11.5-14.0) 02/01/19 06:25 Plt Count 344 10^3/uL (150-450) 02/01/19 06:25 Lymph % (Auto) 18.7 % (13-45) 02/01/19 06:25 [place] % (Auto) 5.1 % (3-13) 02/01/19 06:25 Eos % (Auto) 1.9 % (0-6) 02/01/19 06:25 Baso % (Auto) 0.3 % (0-2) 02/01/19 06:25 Absolute Neuts (auto) 7.2 10^3/uL (1.7-8.2) 02/01/19 06:25 Absolute Lymphs (auto) 1.8 10^3/uL (0.5-4.7) 02/01/19 06:25 Absolute Monos (auto) 0.5 10^3/uL (0.1-1.4) 02/01/19 06:25 Absolute Eos (auto) 0.2 10^3/uL (0.0-0.6) 02/01/19 06:25 Absolute Basos (auto) 0.0 10^3/uL (0.0-0.2) 02/01/19 06:25 Total Counted 100 01/30/19 09:24 Seg Neutrophils % 74.0 % (42-78) 02/01/19 06:25 Seg Neuts % (Manual) 80 % (42-78) H 01/30/19 09:24 Lymphocytes % (Manual) 11 % (13-45) L 01/30/19 09:24 Monocytes % (Manual) 8 % (3-13) 01/30/19 09:24 Eosinophils % (Manual) 1 % (0-6) 01/30/19 09:24 Basophils % (Manual) 0 % (0-2) 01/30/19 09:24 Abs Neuts (Manual) 17.9 10^3/uL (1.7-8.2) H 01/30/19 09:24 Abs Lymphs (Manual) 2.5 10^3/uL (0.5-4.7) 01/30/19 09:24 Abs Monocytes (Manual) 1.8 10^3/uL (0.1-1.4) H 01/30/19 09:24 Absolute Eos (Manual) 0.2 10^3/uL (0.0-0.6) 01/30/19 09:24 Abs Basophils (Manual) 0.0 10^3/uL (0.0-0.2) 01/30/19 09:24 Toxic Granulation SLIGHT 01/30/19 09:24 Toxic Vacuolation PRESENT 01/30/19 09:24 Platelet Comment ADEQUATE 01/30/19 09:24 RBC Morph Comment NORMO-CYTIC/CHROMIC 01/30/19 09:24 Sodium 136.9 mmol/L (137-145) L 02/01/19 06:25 Potassium 4.1 mmol/L (3.6-5.0) 02/01/19 06:25 Chloride 103 mmol/L (98-107) 02/01/19 06:25 Carbon Dioxide 27 mmol/L (22-30) 02/01/19 06:25 Anion Gap 7 (5-19) 02/01/19 06:25 BUN 8 mg/dL (7-20) 02/01/19 06:25 Creatinine 0.32 mg/dL (0.52-1.25) L 02/01/19 06:25 Est GFR ( Amer) > 60 (>60) 02/01/19 06:25 Est GFR (MDRD) Non-Af > 60 (>60) 02/01/19 06:25 Glucose 248 mg/dL (75-110) H 02/01/19 06:25 POC Glucose 168 mg/dL (70-110) H 02/01/19 09:23 Hemoglobin A1c % 11.6 % (4.7-6.0) H 01/31/19 04:28 Lactic Acid (Sepsis) 1.0 mmol/L (0.7-2.1) 01/30/19 10:17 Calcium 8.4 mg/dL (8.4-10.2) 02/01/19 06:25 Total Bilirubin 0.5 mg/dL (0.2-1.3) 01/31/19 04:28 Direct Bilirubin 0.2 mg/dL (0.0-0.4) 01/31/19 04:28 Neonat Total Bilirubin Not Reportable 01/31/19 04:28 Neonat Direct Bilirubin Not Reportable 01/31/19 04:28 Neonat Indirect Bili Not Reportable 01/31/19 04:28 AST 13 U/L (14-36) L 01/31/19 04:28 ALT 14 U/L (<35) 01/31/19 04:28 Alkaline Phosphatase 116 U/L (38-126) 01/31/19 04:28 Total Protein 5.5 g/dL (6.3-8.2) L 01/31/19 04:28 Albumin 2.8 g/dL (3.5-5.0) L 01/31/19 04:28 Triglycerides 196 mg/dL (<150) H 01/31/19 04:28 Cholesterol 174.81 mg/dL (0-200) 01/31/19 04:28 LDL Cholesterol Direct 131 mg/dL (<100) H 01/31/19 04:28 VLDL Cholesterol 39.2 mg/dL (10-31) H 01/31/19 04:28 HDL Cholesterol 21 mg/dL (>40) L 01/31/19 04:28 TSH 0.77 uIU/mL (0.47-4.68) 01/31/19 04:28 Urine Color YELLOW 01/30/19 09:14 Urine Appearance SLIGHTLY-CLOUDY 01/30/19 09:14 Urine pH 6.0 (5.0-9.0) 01/30/19 09:14 Ur Specific [place] 1.035 01/30/19 09:14 Urine Protein NEGATIVE mg/dL (NEGATIVE) 01/30/19 09:14 Urine Glucose (UA) >=500 mg/dL (NEGATIVE) H 01/30/19 09:14 Urine Ketones 80 mg/dL (NEGATIVE) H 01/30/19 09:14 Urine Blood NEGATIVE (NEGATIVE) 01/30/19 09:14 Urine Nitrite (Reflex) NEGATIVE (NEGATIVE) 01/30/19 09:14 Urine Bilirubin NEGATIVE (NEGATIVE) 01/30/19 09:14 Urine Urobilinogen NEGATIVE mg/dL (<2.0) 01/30/19 09:14 Leukocyte Esterase Rfl SMALL (NEGATIVE) H 01/30/19 09:14 Urine RBC (Auto) 3 /HPF 01/30/19 09:14 Urine WBC (Reflex) 6 /HPF 01/30/19 09:14 Squamous Epi Cells Auto 16 /HPF 01/30/19 09:14 Urine Mucus (Auto) RARE /LPF 01/30/19 09:14 Urine Ascorbic Acid NEGATIVE (NEGATIVE) 01/30/19 09:14 Urine HCG, Qual NEGATIVE (NEGATIVE) 01/30/19 09:14 Impressions: Abdomen/Pelvis CT 01/30/19 09:12 IMPRESSION: 1. Ill-defined stranding and asymmetric soft tissue density within the right perirectal/ perineum soft tissue without focal drainable collection identified suggestive of cellulitis. Of note, this area is not completely imaged and proximal thighs are excluded by collimation. No evidence of deep pelvic abscess. 2. No other evidence of acute intra-abdominal/pelvic process. Stroke Is this a Stroke Patient?: No Acute Heart Failure - Is this a Heart Failure Patient?: No
== END 2019-02-01 10:33 | disposition home or self-care (01) ==
LOC: ER 08:31 → EH 13:39 → 4S 15:47
PROVIDERS: ADMIT Hospitalist; ATTEND Hospitalist
DX: L02.31 Cutaneous abscess of buttock (principal); E11.65 Type 2 diabetes mellitus with hyperglycemia; E11.40 Type 2 diabetes mellitus with diabetic neuropathy, unspecified; R11.2 Nausea with vomiting, unspecified; G40.909 Epilepsy, unspecified, not intractable, without status epilepticus; E66.9 Obesity, unspecified; M06.9 Rheumatoid arthritis, unspecified; E87.1 Hypo-osmolality and hyponatremia; D72.829 Elevated white blood cell count, unspecified; R00.0 Tachycardia, unspecified; E78.5 Hyperlipidemia, unspecified; F41.9 Anxiety disorder, unspecified; F17.210 Nicotine dependence, cigarettes, uncomplicated; Z91.14 Patient's other noncompliance with medication regimen; Z59.8 Other problems related to housing and economic circumstances; Z68.39 Body mass index [BMI] 39.0-39.9, adult; Z79.899 Other long term (current) drug therapy
CPT/HCPCS: 300; 36415; 74177; 80048; 80053; 80061; 81001; 81025; 82962; 83036; 83605; 84443; 85025; 87040; 87070; 87075; 87077; 87205; 96361; 96365; 96375; 96376; 99284; G0378; J1170; J1644; J1815; J1885; J2250; J2270; J2405; J2704; J2765; J3010; J3490; J7030; S0028

== ENCOUNTER 2019-02-06 06:40 | Emergency (ER) | payer MEDICAID ==
[2019-02-06] MEDS ORDERED: OXYCODONE-ACETAMINOPHEN 5-325 MG TABLET PO ONE (10:02)
[2019-02-06] MEDS ORDERED: FLUCONAZOLE 100 MG TABLET PO ONE (10:02)
[2019-02-06] MEDS ORDERED: MICONAZOLE NITRATE 2% CREAM 15GM TP ONE (10:03)
[2019-02-06 10:41] LABS: APPEARANCE,URINE CLOUDY; BILIRUBIN,URINE NEGATIVE (NEGATIVE); COLOR,URINE YELLOW; GLUCOSE, URINE >=500 mg/dL (NEGATIVE); KETONES,URINE NEGATIVE (NEGATIVE); LEUKOCYTE ESTERASE,URINE LARGE (NEGATIVE); NITRITE,URINE NEGATIVE (NEGATIVE); PROTEIN,URINE NEGATIVE (NEGATIVE); URINE SPECIFIC GRAVITY 1.029; UROBILINOGEN,URINE NEGATIVE mg/dL (<2.0)
--- NOTE | 2019-02-06 11:36 | PDOC CONSULTATION ---
Consultation Consult Date: 02/06/19 Provider Consulted: SHANTEL BANKS Consult reason:: Evaluate buttocks wound History of Present Illness Patient complains of: Vaginal drainage and rash. History of Present Illness: DENISE GUTIERREZ is a 28 year old female Status post buttocks abscess excisional debridement about a week ago. Patient had been taking antibiotics at home and developed severe yeast infection and is currently being evaluated by ER for that. Surgery asked to evaluate her buttocks wound. She apparently had a follow-up visit with the surgery clinic today that was postponed due to her ER visit. Past Medical History Cardiac Medical History: Reports: Hypertension Pulmonary Medical History: Reports: Asthma Neurological Medical History: Reports: Migraine, Seizures Endocrine Medical History: Reports: Diabetes Mellitus Type 2 - insulin dependent GI Medical History: Reports: Gastroesophageal Reflux Disease Musculoskeltal Medical History: Reports: Arthritis Psychiatric Medical History: Reports: Depression Social History Smoking Status: Current Every Day Smoker Frequency of Alcohol Use: None Hx Recreational Drug Use: No Drugs: None Hx Prescription Drug Abuse: No Family History Parental Family History Reviewed: No Children Family History Reviewed: No Sibling(s) Family History Reviewed.: No Medication/Allergy Home Medications: Levetiracetam [Keppra 500 mg Tablet] 500 mg PO Q12 01/30/19 Quetiapine Fumarate [Seroquel 100 mg Tablet] 100 mg PO Q12 01/30/19 Clindamycin HCl [Cleocin 150 mg Capsule] 150 mg PO Q8 7 Days #21 capsule 02/01/19 Insulin Aspart [Novolog Flexpen] 0 - 12 unit SUBCUT .SLD SCALE 30 Days #1 pen 02/01/19 Insulin Glargine,Hum.rec.anlog [Lantus Insulin 100 Unit/1 ml 10 ml] 30 unit SQ DAILY 30 Days #1 unit 02/01/19 Oxycodone HCl/Acetaminophen [Percocet 7.5-325 mg Tablet] 1 tab PO Q6 PRN 5 Days #20 tab 02/01/19 Allergies/Adverse Reactions: tramadol [Tramadol] Allergy (Unknown, Verified 10/17/13 21:32) Bee Sting Kit *RETIRED-04/21/10 [Bee Sting Kit] Allergy (Verified 10/17/13 21:32) Coconut * [Coconut] Allergy (Verified 10/17/13 21:32) pineapple [Pineapple] Allergy (Verified 10/17/13 21:32) Physical Exam Vital Signs: Temp Pulse Resp BP Pulse Ox 98.2 F 80 17 121/90 H 95 02/06/19 07:11 02/06/19 07:11 02/06/19 07:11 02/06/19 07:11 02/06/19 07:11 Intake & Output 02/05/19 02/06/19 02/07/19 06:59 06:59 06:59 Weight 88.1 kg Skin exam: PRESENT: other - Buttocks wound is wide open and and appears very clean with no surrounding erythema. Results Laboratory Results: 02/06/19 10:23 Urine Color YELLOW Urine Appearance CLOUDY Urine pH 6.0 Ur Specific [place] 1.029 Urine Protein NEGATIVE Urine Glucose (UA) >=500 H Urine Ketones NEGATIVE Urine Blood NEGATIVE Urine Nitrite NEGATIVE Ur Leukocyte Esterase LARGE H Urine WBC (Auto) 75 Urine RBC (Auto) 31 Assessment & Plan - Diagnosis (1) Abscess of buttock Is this a current diagnosis for this admission?: Yes Plan: Status post excisional debridement. The wound appears very good. She does not need antibiotics in regards to her buttocks wound. Defer to ER for treatment of her yeast infection. Patient already doing appropriate local wound care. Follow-up at [facility] as scheduled later this week.
--- NOTE | 2019-02-06 12:51 | ER Document Report ---
Entered by ARELY PRECIADO SCRIBE 02/06/19 0935 Acting as scribe for:JESÚS OSCAR DO ED General - General Chief Complaint: Vaginal Pain Stated Complaint: POSSIBLE ALLERGIC REACTION Time Seen by Provider: 02/06/19 09:25 Mode of Arrival: Ambulatory Information source: Patient Notes: This 28-year-old female patient presents to the emergency department today with complaints of a possible allergic reaction to clindamycin which she was started on last week. Patient had an abscess drained from her buttock and was started on Clinda but states she stopped this yesterday due to a "vaginal rash". Patient complains of vaginal irritation and pain. Patient denies any vaginal discharge or shortness of breath. TRAVEL OUTSIDE OF THE [place] IN LAST 30 DAYS: No - Related Data Allergies/Adverse Reactions: tramadol [Tramadol] Allergy (Unknown, Verified 10/17/13 21:32) Bee Sting Kit *RETIRED-04/21/10 [Bee Sting Kit] Allergy (Verified 10/17/13 21:32) Coconut * [Coconut] Allergy (Verified 10/17/13 21:32) pineapple [Pineapple] Allergy (Verified 10/17/13 21:32) Home Medications: Keppra. xanax Past Medical History - General Information source: Patient - Social History Smoking Status: Current Every Day Smoker Cigarette use (# per day): Yes Frequency of alcohol use: None Drug Abuse: None Lives with: Family Family History: Reviewed & Not Pertinent Patient has suicidal ideation: No Patient has homicidal ideation: No - Past Medical History Cardiac Medical History: Reports: Hx Hypertension Pulmonary Medical History: Reports: Hx Asthma Neurological Medical History: Reports: Hx Migraine, Hx Seizures Endocrine Medical History: Reports: Hx Diabetes Mellitus Type 2 - insulin dependent Renal/ Medical History: Reports: Hx Ovarian Cysts GI Medical History: Reports: Hx Gastroesophageal Reflux Disease Musculoskeletal Medical History: Reports Hx Arthritis Psychiatric Medical History: Reports: Hx Anxiety, Hx Depression - Immunizations Immunizations up to date: Yes Hx Diphtheria, Pertussis, Tetanus Vaccination: Yes Review of Systems - Review of Systems Constitutional: No symptoms reported EENT: No symptoms reported Cardiovascular: No symptoms reported Respiratory: denies: Short of breath Gastrointestinal: No symptoms reported Genitourinary: No symptoms reported Female Genitourinary: See HPI, Other - vaginal pain/irritation. denies: Vaginal discharge Musculoskeletal: No symptoms reported Skin: See HPI, Other - vaginal irritation Hematologic/Lymphatic: No symptoms reported Neurological/Psychological: No symptoms reported -: Yes All other systems reviewed and negative Physical Exam - Vital signs Vitals: Temp Pulse Resp BP Pulse Ox 98.2 F 80 17 121/90 H 95 02/06/19 07:11 02/06/19 07:11 02/06/19 07:11 02/06/19 07:11 02/06/19 07:11 Course - Re-evaluation Re-evalutation: 02/06/19 10:[address] Nunes, - Vital Signs Vital signs: Temp Pulse Resp BP Pulse Ox 98.2 F 80 17 121/90 H 95 02/06/19 07:11 02/06/19 07:11 02/06/19 07:11 02/06/19 07:11 02/06/19 07:11 - Laboratory Laboratory results interpreted by me: 02/06/19 10:23 Urine Glucose (UA) >=500 H Ur Leukocyte Esterase LARGE H Discharge - Discharge Clinical Impression: Vaginal yeast infection, Visit for wound check Condition: Stable Disposition: HOME, SELF-CARE Instructions: Vaginal Yeast Infection ([facility]) Prescriptions: Fluconazole 200 mg PO ONCE PRN #3 tablet PRN Reason: I personally performed the services described in the documentation, reviewed and edited the documentation which was dictated to the scribe in my presence, and it accurately records my words and actions.
[2019-02-06 13:32] VITALS: BP 125/74
== END 2019-02-06 13:31 | disposition home or self-care (01) ==
LOC: ER 06:40
DX: B37.3 Candidiasis of vulva and vagina (principal); F17.210 Nicotine dependence, cigarettes, uncomplicated
CPT/HCPCS: 99284; 81025; 81001; J3490 ×2

== ENCOUNTER 2019-03-03 07:51 | Emergency (ER) | payer MEDICAID ==
[2019-03-03 10:13] LABS: ABSOLUTE BASOPHILS # (AUTO) 0.1 10^3/uL (0.0-0.2); ABSOLUTE EOSINOPHILS # (AUTO) 0.1 10^3/uL (0.0-0.6); ABSOLUTE LYMPHOCYTES (AUTO) 1.7 10^3/uL (0.5-4.7); ABSOLUTE MONOCYTES (AUTO) 1.3 10^3/uL (0.1-1.4); BASOPHILS % (AUTO) 0.4 % (0-2); EOSINOPHILS % (AUTO) 0.6 % (0-6); HEMATOCRIT 39.4 % (36.0-47.0); HEMOGLOBIN 13.8 g/dL (12.0-15.5); LYMPHOCYTES % (AUTO) 9.4 % (13-45); MEAN CORPUSCULAR HEMOGLOBIN 29.8 pg (27.0-33.4); MEAN CORPUSCULAR HGB CONC 35.1 g/dL (32.0-36.0); MEAN CORPUSCULAR VOLUME 85 fl (80-97); MONOCYTES % (AUTO) 7.2 % (3-13); PLATELET COUNT 353 10^3/uL (150-450); RED BLOOD COUNT 4.65 10^6/uL (3.72-5.28); SEGMENTED NEUTROPHILS % (AUTO) 82.4 % (42-78); TOTAL CELLS COUNTED % (AUTO) 100 %; WHITE BLOOD COUNT 18.2 10^3/uL (4.0-10.5)
[2019-03-03 10:25] LABS: APPEARANCE,URINE CLOUDY; BILIRUBIN,URINE NEGATIVE (NEGATIVE); COLOR,URINE YELLOW; GLUCOSE, URINE NEGATIVE (NEGATIVE); KETONES,URINE NEGATIVE (NEGATIVE); LEUKOCYTE ESTERASE,URINE LARGE (NEGATIVE); NITRITE,URINE POSITIVE (NEGATIVE); PROTEIN,URINE 100 mg/dL (NEGATIVE)
[2019-03-03] MEDS ORDERED: ACETAMINOPHEN 325 MG TABLET PO ONE (10:29)
[2019-03-03] MEDS ORDERED: CEFTRIAXONE 1 GM/D5W RTU 1 GM/50 ML RTUPB IV SCH (10:30)
--- NOTE | 2019-03-03 10:32 | ER Document Report ---
ED Medical Screen (RME) - General Chief Complaint: Nausea/Vomiting Stated Complaint: BREATHING DIFFICULTY Time Seen by Provider: 03/03/19 10:18 TRAVEL OUTSIDE OF THE [place] IN LAST 30 DAYS: No - HPI Notes: 03/03/19 10:31 Patient is a 28-year-old female who presents complaining of nausea, vomiting, abdominal pain, flank pain, urinary burning, urgency, frequency over the past 4 days. Patient states that she has felt feverish as well but has not taken any Tylenol or Motrin today. I have treated and performed a rapid initial assessment of this patient. A comprehensive ED assessment and evaluation of the patient, analysis of test results and completion of medical decision making process will be conducted by additional ED providers. PHYSICAL EXAMINATION: GENERAL: no acute distress. A&Ox4. Answers questions appropriately. Abdomen: Limited exam. Tenderness throughout with guarding noted. - Related Data Allergies/Adverse Reactions: tramadol [Tramadol] Allergy (Unknown, Verified 03/03/19 08:10) Bee Sting Kit *RETIRED-04/21/10 [Bee Sting Kit] Allergy (Verified 03/03/19 08:10) Coconut * [Coconut] Allergy (Verified 03/03/19 08:10) pineapple [Pineapple] Allergy (Verified 03/03/19 08:10) Home Medications: lantus. humulin. keppra. seroquel. xanax Past Medical History - Social History Chew tobacco use (# tins/day): No Frequency of alcohol use: None - Past Medical History Cardiac Medical History: Reports: Hx Hypertension Pulmonary Medical History: Reports: Hx Asthma Neurological Medical History: Reports: Hx Migraine, Hx Seizures Endocrine Medical History: Reports: Hx Diabetes Mellitus Type 2 - insulin d ependent Renal/ Medical History: Reports: Hx Ovarian Cysts GI Medical History: Reports: Hx Gastroesophageal Reflux Disease Musculoskeltal Medical History: Reports Hx Arthritis Psychiatric Medical History: Reports: Hx Anxiety, Hx Depression - Immunizations Immunizations up to date: Yes Hx Diphtheria, Pertussis, Tetanus Vaccination: Yes Physical Exam - Vital signs Vitals: Temp Pulse Resp BP Pulse Ox 101.7 F H 133 H 26 H 149/99 H 98 03/03/19 07:52 03/03/19 07:52 03/03/19 07:52 03/03/19 07:52 03/03/19 07:52 Course - Vital Signs Vital signs: Temp Pulse Resp BP Pulse Ox 101.7 F H 107 H 26 H 149/99 H 98 03/03/19 07:52 03/03/19 08:23 03/03/19 07:52 03/03/19 07:52 03/03/19 07:52 - Laboratory Result Diagrams: 03/03/19 09:37 03/03/19 09:37 Laboratory results interpreted by me: 03/03/19 03/03/19 09:37 09:37 WBC 18.2 H Lymph % (Auto) 9.4 L Absolute Neuts (auto) 15.0 H Seg Neutrophils % 82.4 H Urine Protein 100 H Urine Blood MODERATE H Urine Nitrite POSITIVE H Urine Urobilinogen 4.0 H Ur Leukocyte Esterase LARGE H
[2019-03-03 10:34] LABS: ALBUMIN 3.7 g/dL (3.5-5.0); ALKALINE PHOSPHATASE 91 U/L (38-126); ANION GAP 14 (5-19); ASPARTATE AMINO TRANSFERASE 15 U/L (14-36); BILIRUBIN,DIRECT 0.1 mg/dL (0.0-0.4); BILIRUBIN,TOTAL 1.8 mg/dL (0.2-1.3); BLOOD UREA NITROGEN 6 mg/dL (7-20); CALCIUM 9.4 mg/dL (8.4-10.2); CARBON DIOXIDE 25 mmol/L (22-30); CHLORIDE 97 mmol/L (98-107); GLUCOSE 188 mg/dL (75-110); POTASSIUM 3.9 mmol/L (3.6-5.0); TOTAL PROTEIN 6.9 g/dL (6.3-8.2)
[2019-03-03] MEDS: NORMAL SALINE 1000 ML 1,000 ML IV PRN ×2 (10:36→11:42)
[2019-03-03 10:50] LABS: A TYPE INFLUENZA AG NEGATIVE (NEGATIVE); B INFLUENZA AG NEGATIVE (NEGATIVE)
--- NOTE | 2019-03-03 11:33 | RADIOLOGY REPORT (SQ) ---
EXAM DESCRIPTION: CT ABD/PELVIS WITH IV ONLY COMPLETED DATE/TIME: 03/03/2019 11:09 am REASON FOR STUDY: abd pain COMPARISON: 01/30/2019 TECHNIQUE: CT scan of the abdomen and pelvis performed using helical scanning technique with dynamic intravenous contrast injection. No oral contrast. Images reviewed with lung, soft tissue, and bone windows. Reconstructed coronal and sagittal MPR images reviewed. Delayed images for evaluation of the urinary system also acquired. All images stored on PACS. All CT scanners at this facility use dose modulation, iterative reconstruction, and/or weight based d osing when appropriate to reduce radiation dose to as low as reasonably achievable (ALARA). [facility]: Dose Right [facility]: CareDose [facility]: Dose Right [facility]: Teradose 4D [facility]: Rentobo CONTRAST TYPE AND DOSE: contrast/concentration: Isovue 350.00 mg/ml; Total Contrast Delivered: 100.0 ml; Total Saline Delivered: 72.0 ml RENAL FUNCTION: None required. The patient is less than 50 years old. RADIATION DOSE: CT Rad equipment meets quality standard of care and radiation dose reduction techniq ues were employed. CTDIvol: 10.7 - 14.6 mGy. DLP: 1403 mGy-cm.. LIMITATIONS: None. FINDINGS: LOWER CHEST: No significant findings. No nodules or infiltrates. LIVER: Diffusely fatty. SPLEEN: Normal size. No focal lesions. PANCREAS: No masses. No significant calcifications. No adjacent inflammation or peripancreatic fluid collections. Pancreatic duct not dilated. GALLBLADDER: No identified stones by CT criteria. No inflammatory changes to suggest cholecystitis. ADRENAL GLANDS: No significant masses or asymmetry. RIGHT KIDNEY AND URETER: No solid masses. No significant calcification. No hydronephrosis or hydroure ter. LEFT KIDNEY AND URETER: No solid masses. No significant calcification. No hydronephrosis or hydrouret er. AORTA AND VESSELS: No aneurysm. No dissection. Renal arteries, SMA, celiac without stenosis. RETROPERITONEUM: No retroperitoneal adenopathy, hemorrhage or masses. BOWEL AND PERITONEAL CAVITY: Large amount of stool throughout the colon. No mechanical small bowel o bstruction suggested. Trace pelvic free fluid. No free air APPENDIX: Normal. PELVIS: Trace free fluid. Probable collapsing hemorrhagic cyst in the left ovary. Bladder unremarka ble. ABDOMINAL WALL: No masses. No hernias. BONES: No significant or acute findings. OTHER: No other significant finding. IMPRESSION: 1. Suspect a small hemorrhagic or ruptured cyst related to the left ovary with trace free fluid in th e pelvis. 2. Fatty liver. 3. No acute abdominal abnormality. Kidneys look normal. 4. Constipation. TECHNICAL DOCUMENTATION: JOB ID: [id number] Quality ID # [id number]: Final reports with documentation of one or more dose reduction techniques (e.g., Au tomated exposure control, adjustment of the mA and/or kV according to patient size, use of iterative reconstruction technique) 2010 [employer]- All Rights Reserved Reading location - IP/workstation name: [email or web address]
--- NOTE | 2019-03-03 11:45 | RADIOLOGY REPORT (SQ) ---
EXAM DESCRIPTION: CHEST SINGLE VIEW COMPLETED DATE/TIME: 03/03/2019 11:32 am REASON FOR STUDY: fever COMPARISON: 10/14/2013 NUMBER OF VIEWS: One view. TECHNIQUE: Single frontal radiographic view of the chest acquired. LIMITATIONS: None. FINDINGS: LUNGS AND PLEURA: No opacities, masses or pneumothorax. No pleural effusion. MEDIASTINUM AND HILAR STRUCTURES: No masses. Contour normal. HEART AND VASCULAR STRUCTURES: Heart normal in size. Normal vasculature. BONES: No acute findings. HARDWARE: None in the chest. OTHER: No other significant finding. IMPRESSION: NO SIGNIFICANT RADIOGRAPHIC FINDING IN THE CHEST. TECHNICAL DOCUMENTATION: JOB ID: [id number] [employer]- All Rights Reserved Reading location - IP/workstation name: [email or web address]
[2019-03-03] MEDS ORDERED: MORPHINE SULFATE 10 MG/ML INJ IV ONE (12:06)
[2019-03-03] MEDS ORDERED: ONDANSETRON HCL INJ/PF 4 MG/2 ML SDV IV ONE (12:10)
--- NOTE | 2019-03-03 12:12 | ER Document Report ---
ED General - General Chief Complaint: Nausea/Vomiting Stated Complaint: BREATHING DIFFICULTY Time Seen by Provider: 03/03/19 10:18 Information source: Patient Notes: HPI: 28-year-old diabetic female who presents today with the onset around 4 days ago of some bilateral flank pain, fevers, nausea, lower pelvic pain, dysuria. She denies any vaginal discharge. She denies any aggravating relieving factors. History of urinary tract infection x1 in the past. Patient vomited x2 this morning. She also states some mild pain with deep respirations. She denies any anterior chest pain. No runny nose, congestion, or cough. ROS: See HPI All other review of systems reviewed and otherwise negative Reviewed vital signs and nursing note as charted by RN. PHYSICAL EXAM: CONSTITUTIONAL: Alert and oriented and responds appropriately to questions. She does appear to be in pain HEAD: Normocephalic; atraumatic EYES: PERRL; Conjunctivae clear, sclerae non-icteric ENT: Normal nose; no rhinorrhea; moist mucous membranes; pharynx without lesions noted NECK: Supple without meningismus; non-tender; no cervical lymphadenopathy, no masses CARD: Tachycardic and regular; no murmurs; symmetric distal pulses RESP: Normal chest excursion without splinting or tachypnea; breath sounds clear and equal bilaterally; no wheezes, no rhonchi, no rales ABD/GI: Normal bowel sounds; non-distended; soft, palpation of bilateral lower quadrants of the abdomen without rebound or guarding BACK: The back appears normal and is non-tender to palpation; bilateral CVA tenderness with no swelling or erythema EXT: Normal ROM in all joints; non-tender to palpation; no edema SKIN: No acute lesions noted NEURO: CN 2-12 intact; 5/5 bilateral upper and lower extremity strength with sensation intact to light touch PSYCH: The patient's mood and manner are appropriate. Grooming and personal hygiene are appropriate. TRAVEL OUTSIDE OF THE [place] IN LAST 30 DAYS: No - Related Data Allergies/Adverse Reactions: tramadol [Tramadol] Allergy (Unknown, Verified 03/03/19 08:10) Bee Sting Kit *RETIRED-04/21/10 [Bee Sting Kit] Allergy (Verified 03/03/19 08:10) Coconut * [Coconut] Allergy (Verified 03/03/19 08:10) pineapple [Pineapple] Allergy (Verified 03/03/19 08:10) Home Medications: lantus. humulin. keppra. seroquel. xanax Past Medical History - Social History Smoking Status: Current Every Day Smoker Chew tobacco use (# tins/day): No Frequency of alcohol use: None Family History: Reviewed & Not Pertinent Patient has suicidal ideation: No Patient has homicidal ideation: No - Past Medical History Cardiac Medical History: Reports: Hx Hypertension Pulmonary Medical History: Reports: Hx Asthma Neurological Medical History: Reports: Hx Migraine, Hx Seizures Endocrine Medical History: Reports: Hx Diabetes Mellitus Type 2 - insulin dependent Renal/ Medical History: Reports: Hx Ovarian Cysts GI Medical History: Reports: Hx Gastroesophageal Reflux Disease Musculoskeletal Medical History: Reports Hx Arthritis Psychiatric Medical History: Reports: Hx Anxiety, Hx Depression - Immunizations Immunizations up to date: Yes Hx Diphtheria, Pertussis, Tetanus Vaccination: Yes Physical Exam - Vital signs Vitals: Temp Pulse Resp BP Pulse Ox 101.7 F H 133 H 26 H 149/99 H 98 03/03/19 07:52 03/03/19 07:52 03/03/19 07:52 03/03/19 07:52 03/03/19 07:52 Course - Re-evaluation Re-evalutation: Given the above history and physical we will order basic labs, blood cultures, lactic acid level, urine analysis, renal colic CT scan, and reassess. I would like to assess for the possibility of pyelonephritis, sepsis, or an infected kidney stone. No history of kidney stones. Given the pleuritic pain, I will order an x-ray of the chest. I do believe PE to be unlikely. 03/03/19 12:08 Given the above history and physical, diabetic, vomiting here, still persistent pain, urine analysis as recorded, we will provide Rocephin and most likely admit the patient for observation for further evaluation and pain management. - Vital Signs Vital signs: Temp Pulse Resp BP Pulse Ox 98.4 F 107 H 16 149/99 H 97 03/03/19 11:00 03/03/19 08:23 03/03/19 12:00 03/03/19 07:52 03/03/19 12:00 - Laboratory Result Diagrams: 03/03/19 09:37 03/03/19 09:37 Laboratory results interpreted by me: 03/03/19 03/03/19 03/03/19 09:37 09:37 09:37 WBC 18.2 H Lymph % (Auto) 9.4 L Absolute Neuts (auto) 15.0 H Seg Neutrophils % 82.4 H Sodium 135.7 L Chloride 97 L BUN 6 L Creatinine 0.39 L Glucose 188 H Total Bilirubin 1.8 H Urine Protein 100 H Urine Blood MODERATE H Urine Nitrite POSITIVE H Urine Urobilinogen 4.0 H Ur Leukocyte Esterase LARGE H Discharge - Discharge Clinical Impression: Pyelonephritis Diabetes Qualifiers: Diabetes mellitus type: type 1 Diabetes mellitus complication status: with other specified complication Qualified Code(s): E10.69 - Type 1 diabetes mellitus with other specified complication Vomiting Qualifiers: Vomiting type: unspecified Vomiting Intractability: non-intractable Nausea presence: with nausea Qualified Code(s): R11.2 - Nausea with vomiting, unspecified Condition: Fair Disposition: ADMITTED OBSERVATION Admitting Provider: Rosendo (Hospitalist)
[2019-03-03 13:37] VITALS: BP 106/67
== END 2019-03-03 13:40 | disposition home or self-care (01) ==
LOC: ER 07:51
DX: N12 Tubulo-interstitial nephritis, not specified as acute or chronic (principal); E10.69 Type 1 diabetes mellitus with other specified complication; R11.2 Nausea with vomiting, unspecified; F17.200 Nicotine dependence, unspecified, uncomplicated; I10 Essential (primary) hypertension; Z79.4 Long term (current) use of insulin
CPT/HCPCS: 99285; 96361; 96375; 96365; 36415; 87040; 87086; 82962; 83605; 85025; 81025; 87088; 80053; 81001; 87186; 87804; 71045; 74177; J3490; J2270; J2405; J7030; J0696

== ENCOUNTER 2019-05-08 18:02 | Emergency (ER) | payer MEDICAID ==
[2019-05-08 18:08] VITALS: BP 136/91
--- NOTE | 2019-05-08 18:44 | ER Document Report ---
ED Medical Screen (RME) - General Chief Complaint: Vaginal Bleeding Stated Complaint: FALL/ABDOMINAL PAIN,VAGINAL BLEEDING Time Seen by Provider: 05/08/19 18:12 Mode of Arrival: Ambulatory Information source: Patient Notes: She presents stating that she fell 1 week ago hitting her abdomen on the ground. Patient states that shortly thereafter she started to have pelvic cramping with vaginal bleeding. Patient states that the bleeding stopped but she does still have lower pelvic pain. Patient denies any urinary symptoms. Patient states that she is currently 21 weeks . Staff called to the labor and delivery unit which reviewed patient's recent ER records demonstrating that patient had a negative test in February 2019. Patient advised of this finding. We will evaluate patient here in the emergency department at this time. I have greeted and performed a rapid initial assessment of this patient. A comprehensive ED assessment and evaluation of the patient, analysis of test results and completion of the medical decision making process will be conducted by additional ED providers. TRAVEL OUTSIDE OF THE [place] IN LAST 30 DAYS: No - Related Data Allergies/Adverse Reactions: tramadol [Tramadol] Allergy (Unknown, Verified 03/03/19 08:10) acetaminophen [From Vicodin] Allergy (Verified 05/08/19 18:37) Bee Sting Kit *RETIRED-04/21/10 [Bee Sting Kit] Allergy (Verified 03/03/19 08:10) Coconut * [Coconut] Allergy (Verified 03/03/19 08:10) hydrocodone [From Vicodin] Allergy (Verified 05/08/19 18:37) ketorolac [From Toradol] Allergy (Verified 05/08/19 18:37) pineapple [Pineapple] Allergy (Verified 03/03/19 08:10) Past Medical History - Past Medical History Cardiac Medical History: Reports: Hx Hypertension Pulmonary Medical History: Reports: Hx Asthma Neurological Medical History: Reports: Hx Migraine, Hx Seizures Endocrine Medical History: Reports: Hx Diabetes Mellitus Type 2 - insulin dependent Renal/ Medical History: Reports: Hx Ovarian Cysts GI Medical History: Reports: Hx Gastroesophageal Reflux Disease Musculoskeltal Medical History: Reports Hx Arthritis Psychiatric Medical History: Reports: Hx Anxiety, Hx Depression - Immunizations Immunizations up to date: Yes Hx Diphtheria, Pertussis, Tetanus Vaccination: Yes Physical Exam - Vital signs Vitals: Temp Pulse Resp BP Pulse Ox 98.5 F 87 16 136/91 H 99 05/08/19 18:07 05/08/19 18:07 05/08/19 18:07 05/08/19 18:07 05/08/19 18:07 - General General appearance: Appears well, Alert Notes: Lower pelvic tenderness Course - Vital Signs Vital signs: Temp Pulse Resp BP Pulse Ox 98.5 F 87 16 136/91 H 99 05/08/19 18:07 05/08/19 18:07 05/08/19 18:07 05/08/19 18:07 05/08/19 18:07
[2019-05-08 19:25] LABS: ABSOLUTE BASOPHILS # (AUTO) 0.1 10^3/uL (0.0-0.2); ABSOLUTE EOSINOPHILS # (AUTO) 0.3 10^3/uL (0.0-0.6); ABSOLUTE LYMPHOCYTES (AUTO) 2.4 10^3/uL (0.5-4.7); ABSOLUTE MONOCYTES (AUTO) 0.5 10^3/uL (0.1-1.4); ABSOLUTE NEUT (AUTO) 8.8 10^3/uL (1.7-8.2); BASOPHILS % (AUTO) 0.6 % (0-2); EOSINOPHILS % (AUTO) 2.7 % (0-6); HEMATOCRIT 46.1 % (36.0-47.0); HEMOGLOBIN 16.2 g/dL (12.0-15.5); MEAN CORPUSCULAR HEMOGLOBIN 29.4 pg (27.0-33.4); MEAN CORPUSCULAR HGB CONC 35.2 g/dL (32.0-36.0); MEAN CORPUSCULAR VOLUME 84 fl (80-97); MONOCYTES % (AUTO) 4.1 % (3-13); RED BLOOD COUNT 5.52 10^6/uL (3.72-5.28); SEGMENTED NEUTROPHILS % (AUTO) 72.6 % (42-78); TOTAL CELLS COUNTED % (AUTO) 100 %; WHITE BLOOD COUNT 12.1 10^3/uL (4.0-10.5)
[2019-05-08 19:41] LABS: ANION GAP 12 (5-19); BLOOD UREA NITROGEN 5 mg/dL (7-20); CALCIUM 9.6 mg/dL (8.4-10.2); CARBON DIOXIDE 25 mmol/L (22-30); CHLORIDE 97 mmol/L (98-107); GLUCOSE 353 mg/dL (75-110)
[2019-05-08 19:41] LABS: APPEARANCE,URINE CLEAR; BILIRUBIN,URINE NEGATIVE (NEGATIVE); COLOR,URINE STRAW; GLUCOSE, URINE >=500 mg/dL (NEGATIVE); KETONES,URINE NEGATIVE (NEGATIVE); LEUKOCYTE ESTERASE,URINE NEGATIVE (NEGATIVE); NITRITE,URINE NEGATIVE (NEGATIVE); PROTEIN,URINE NEGATIVE (NEGATIVE); URINE SPECIFIC GRAVITY 1.037; UROBILINOGEN,URINE NEGATIVE mg/dL (<2.0)
[2019-05-08 19:42] LABS: PLATELET COUNT 300 10^3/uL (150-450)
--- NOTE | 2019-05-08 20:02 | ER Document Report ---
ED GI/ - General Chief Complaint: Vaginal Bleeding Stated Complaint: FALL/ABDOMINAL PAIN,VAGINAL BLEEDING Time Seen by Provider: 05/08/19 18:12 Mode of Arrival: Ambulatory Notes: Patient is a 28-year-old female who presents the emergency department with a chief complaint of abdominal pain. Patient states that her last menstrual cycle was December 10 and she is 21 weeks . Patient states that she fell about 3 weeks ago and she had some abdominal cramping. Patient states that she continues to have some abdominal cramping. Patient was seen on March 03 and at that time, her hCG was negative. Patient also states that she has had some green/yellow vaginal discharge noted. TRAVEL OUTSIDE OF THE [place] IN LAST 30 DAYS: No - Related Data Allergies/Adverse Reactions: tramadol [Tramadol] Allergy (Unknown, Verified 03/03/19 08:10) acetaminophen [From Vicodin] Allergy (Verified 05/08/19 18:37) Bee Sting Kit *RETIRED-04/21/10 [Bee Sting Kit] Allergy (Verified 03/03/19 08:10) Coconut * [Coconut] Allergy (Verified 03/03/19 08:10) hydrocodone [From Vicodin] Allergy (Verified 05/08/19 18:37) ketorolac [From Toradol] Allergy (Verified 05/08/19 18:37) pineapple [Pineapple] Allergy (Verified 03/03/19 08:10) Past Medical History - General Information source: Patient Last Menstrual Period: 12/08/2018 - Social History Smoking Status: Unknown if Ever Smoked Family History: Reviewed & Not Pertinent Patient has suicidal ideation: No Patient has homicidal ideation: No - Past Medical History Cardiac Medical History: Reports: Hx Hypertension Pulmonary Medical History: Reports: Hx Asthma Neurological Medical History: Reports: Hx Migraine, Hx Seizures Endocrine Medical History: Reports: Hx Diabetes Mellitus Type 2 - insulin dependent Renal/ Medical History: Reports: Hx Ovarian Cysts GI Medical History: Reports: Hx Gastroesophageal Reflux Disease Musculoskeletal Medical History: Reports Hx Arthritis Psychiatric Medical History: Reports: Hx Anxiety, Hx Depression - Immunizations Immunizations up to date: Yes Hx Diphtheria, Pertussis, Tetanus Vaccination: Yes Review of Systems - Review of Systems Notes: REVIEW OF SYSTEMS: CONSTITUTIONAL : Denies recent illness. Denies recent unintentional weight loss. Denies fever, chills, or sweats. EENT: Denies eye, ear, throat, or mouth pain, discharge, or symptoms. Denies nasal or sinus congestion. CARDIOVASCULAR: Denies chest pain. RESPIRATORY: Denies shortness of breath, cough, congestion, difficulty jered thing, or wheezing. GASTROINTESTINAL: See HPI. GENITOURINARY: Denies difficulty urinating, burning, blood in urine, urgency or frequency. FEMALE GENITOURINARY: See HPI. MUSCULOSKELETAL: Denies neck and back pain. Denies joint pain or swelling. SKIN: Denies rash, itchiness, or lesions HEMATOLOGIC : Denies easy bruising or bleeding. LYMPHATIC: Denies swollen, painful, enlarged glands. NEUROLOGICAL: Denies no numbness or tingling denies weakness. Denies headache. Denies altered mental status. Denies alteration in speech. PSYCHIATRIC: Denies stress, anxiety, alteration in sleep patterns, or depression. All other systems reviewed and negative. Physical Exam - Vital signs Vitals: Temp Pulse Resp BP Pulse Ox 98.5 F 87 16 136/91 H 99 05/08/19 18:07 05/08/19 18:07 05/08/19 18:07 05/08/19 18:07 05/08/19 18:07 - Notes Notes: PHYSICAL EXAMINATION: GENERAL: Appears well, healthy, well-nourished, no acute distress. HEAD: Normocephalic, atraumatic. EYES: PERRL, conjunctiva normal, all extraocular movements intact, sclera nonicteric ENT: Moist mucous membranes. NECK: Supple, no noticeable swelling, redness, rash. Normal range of motion. LUNGS: Equal breath sounds bilaterally and clear to auscultation. No wheezes rales or rhonchi. CARDIOVASCULAR: S1-S2, regular rate, regular rhythm. Radial pulses 2+, normal. ABDOMEN: Normoactive bowel sounds. Soft, tender mid lower abdomen, no guarding, no rebound tenderness, and no masses palpated. EXTREMITIES: Normal strength and range of motion, no pitting or edema. No cyanosis. NEUROLOGICAL: Moves all extremities upon command. Strength 5/5 in all extremities. PSYCH: Normal mood, normal affect. SKIN: Warm, dry. No rash, lesions, ulcerations noted. Normal skin turgor. Course - Re-evaluation Re-evalutation: 05/08/19 19:45 During the patient interview patient requested an ultrasound, as she believes that she is 21 weeks , but her last visit back in February shows a negative hCG, indicative of her not being anymore. I discussed these results with her and she did not respond well with that information and continued to request an ultrasound. I brought the ultrasound to bedside and did not the a fetus in her abdomen. I told her that I would like to wait for labs to come back in order to see if maybe we need a transvaginal ultrasound found. Also advised for her to have a pelvic exam done which she agrees with plan. 05/08/19 20:00 Patient has decided that she wants to leave AGAINST MEDICAL ADVICE. Not all of her labs have resulted. The patient has chosen to leave the facility against medical advice. The relevant issues have been reviewed and discussed with the patient and family at the bedside. At the time of this assessment there is no indication for involuntary commitment. The patient is alert, oriented, and able to express clearly their reasoning for not wanting to remain in the emergency department for further treatment. The patient is not clinically psychotic, intoxicated, and denies and suicidal ideation. Differential or suspected diagnoses based on medical screening exam: Pelvic inflammatory disease, appendicitis, ovarian cysts, tubal . The following recommendations/services were offered and refused: Patient was asked to stay and have a pelvic exam done to see if she possibly has pelvic inflammatory disease. She is refusing to stay. The following risks were explained: , permanent disability, loss of function, sepsis, worsening pelvic inflammatory disease, tubo-ovarian abscess. Clinical impression: Patient is competent to make decisions regarding the medical that is being offered. - Vital Signs Vital signs: Temp Pulse Resp BP Pulse Ox 98.5 F 87 16 136/91 H 99 05/08/19 18:07 05/08/19 18:07 05/08/19 18:07 05/08/19 18:07 05/08/19 18:07 - Laboratory Result Diagrams: 05/08/19 19:00 05/08/19 19:00 Laboratory results interpreted by me: 05/08/19 05/08/19 05/08/19 18:52 19:00 19:00 WBC 12.1 H RBC 5.52 H Hgb 16.2 H Absolute Neuts (auto) 8.8 H Sodium 133.7 L Chloride 97 L BUN 5 L Creatinine 0.33 L Glucose 353 H Urine Glucose (UA) >=500 H Discharge - Discharge Clinical Impression: Abdominal pain Qualifiers: Abdominal location: generalized Qualified Code(s): R10.84 - Generalized abdominal pain Fall Qualifiers: Encounter type: initial encounter Qualified Code(s): W19.XXXA - Unspecified fall, initial encounter Disposition: AGAINST MEDICAL ADVICE
== END 2019-05-08 20:00 | disposition left against medical advice (07) ==
LOC: ER 18:02 → EDSTATUS 18:23 → ER 20:00
DX: R10.84 Generalized abdominal pain (principal); W01.0XXA Fall on same level from slipping, tripping and stumbling without subsequent striking against object, initial encounter; N89.8 Other specified noninflammatory disorders of vagina; R10.819 Abdominal tenderness, unspecified site; I10 Essential (primary) hypertension; J45.909 Unspecified asthma, uncomplicated; E11.9 Type 2 diabetes mellitus without complications; Z88.6 Allergy status to analgesic agent; Z88.8 Allergy status to other drugs, medicaments and biological substances; Z88.7 Allergy status to serum and vaccine; Z91.018 Allergy to other foods; Z88.5 Allergy status to narcotic agent; Z53.20 Procedure and treatment not carried out because of patient's decision for unspecified reasons
CPT/HCPCS: 36415; 80048; 81001; 84702; 85025; 86900; 86901; 99284

== ENCOUNTER 2019-09-12 22:39 | Emergency (ER) | payer MEDICAID ==
--- NOTE | 2019-09-13 00:06 | ER Document Report ---
ED Medical Screen (RME) - General Chief Complaint: Headache Stated Complaint: HEADACH/TOOTHACHE Notes: Patient is a 29-year-old female with no reported past medical history who presents to the emergency department with a chief complaint of toothache to the left lower posterior molar area. She states this is been going on for quite some time. She states however today she started to develop a bilateral temporal headache. She states this is unusual for her. She also notes that she has an infrequent smoker's cough sometimes but recently she has been coughing more than normal. She states that she had direct interaction with someone who was recently in contact with a positive COVID-19 patient. She denies any known fever or shortness of breath. No chest pain or abdominal pain. No rashes, vomiting or diarrhea. No recent travel. I have treated and performed a rapid initial assessment of this patient. A comprehensive ED assessment and evaluation of the patient, analysis of test results and completion of medical decision making process will be conducted by additional ED providers. PHYSICAL EXAMINATION: GENERAL: Well-appearing, well-nourished and in no acute distress. A&Ox4. Answers questions appropriately. TRAVEL OUTSIDE OF THE [place] IN LAST 30 DAYS: No - Related Data Allergies/Adverse Reactions: tramadol [Tramadol] Allergy (Unknown, Verified 03/03/19 08:10) acetaminophen [From Vicodin] Allergy (Verified 05/08/19 18:37) Bee Sting Kit *RETIRED-04/21/10 [Bee Sting Kit] Allergy (Verified 03/03/19 08:10) Coconut * [Coconut] Allergy (Verified 03/03/19 08:10) hydrocodone [From Vicodin] Allergy (Verified 05/08/19 18:37) ketorolac [From Toradol] Allergy (Verified 05/08/19 18:37) pineapple [Pineapple] Allergy (Verified 03/03/19 08:10) Past Medical History - Past Medical History Cardiac Medical History: Reports: Hx Hypertension Pulmonary Medical History: Reports: Hx Asthma Neurological Medical History: Reports: Hx Migraine, Hx Seizures Endocrine Medical History: Reports: Hx Diabetes Mellitus Type 2 - insulin dependent Renal/ Medical History: Reports: Hx Ovarian Cysts GI Medical History: Reports: Hx Gastroesophageal Reflux Disease Musculoskeltal Medical History: Reports Hx Arthritis Psychiatric Medical History: Reports: Hx Anxiety, Hx Depression - Immunizations Immunizations up to date: Yes Hx Diphtheria, Pertussis, Tetanus Vaccination: Yes Physical Exam - Vital signs Vitals: Temp Pulse Resp BP Pulse Ox 98.6 F 79 16 145/91 H 100 09/12/19 22:56 09/12/19 22:56 09/12/19 22:56 09/12/19 22:56 09/12/19 22:56 Course - Vital Signs Vital signs: Temp Pulse Resp BP Pulse Ox 98.6 F 79 16 145/91 H 100 09/12/19 22:56 09/12/19 22:56 09/12/19 22:56 09/12/19 22:56 09/12/19 22:56
--- NOTE | 2019-09-13 01:15 | RADIOLOGY REPORT (SQ) ---
EXAM DESCRIPTION: X-ray, single PA view of the chest CLINICAL HISTORY: 29 years Female, cough COMPARISON: Portable view of the chest 03/03/2019 FINDINGS: Lungs: Lung volumes and aeration have improved. No focal consolidation. No pneumothorax or pleural effusions. Mediastinum: Cardiac and mediastinal silhouette are normal. Bones: Osseous structures are normal. IMPRESSION: No acute process. No pneumonia or edema.
[2019-09-13] MEDS ORDERED: ONDANSETRON 4 MG TAB.RAPDIS PO ONE (01:23)
[2019-09-13] MEDS ORDERED: PENICILLIN V POTASSIUM 500 MG TABLET PO ONE (01:23)
--- NOTE | 2019-09-13 01:25 | ER Document Report ---
ED General - General Chief Complaint: Headache Stated Complaint: HEADACH/TOOTHACHE Mode of Arrival: Ambulatory Information source: Patient Notes: Patient is a 29-year-old female presenting to the emergency department chief complaint of headache and dental pain. Patient states is been ongoing for a couple of days so far as the headache however her dental issues have been ongoing for months. Patient states she was scheduled to see a dentist but then we had the coronavirus pandemic and that has changed her date for the earliest being about a month from now. Patient denies travel history trauma history sick contacts bad food exposure. She does question whether or not she may have been exposed to somebody who may have been exposed to coronavirus but at time of presentation patient does not have a cough or a fever. Patient also has a history of diabetes states she has not taken her medication in several months however was able to procure her medications today TRAVEL OUTSIDE OF THE [place] IN LAST 30 DAYS: No - HPI Onset: Other - months Onset/Duration: Persistent Quality of pain: Achy, Dull Severity: Moderate Pain Level: 3 Associated symptoms: None Exacerbated by: Food Relieved by: Denies Similar symptoms previously: Yes Recently seen / treated by doctor: No - Related Data Allergies/Adverse Reactions: tramadol [Tramadol] Allergy (Unknown, Verified 03/03/19 08:10) acetaminophen [From Vicodin] Allergy (Verified 05/08/19 18:37) Bee Sting Kit *RETIRED-04/21/10 [Bee Sting Kit] Allergy (Verified 03/03/19 08:10) Coconut * [Coconut] Allergy (Verified 03/03/19 08:10) hydrocodone [From Vicodin] Allergy (Verified 05/08/19 18:37) ketorolac [From Toradol] Allergy (Verified 05/08/19 18:37) pineapple [Pineapple] Allergy (Verified 03/03/19 08:10) Past Medical History - General Information source: Patient - Social History Smoking Status: Current Every Day Smoker Cigarette use (# per day): Yes Chew tobacco use (# tins/day): No Smoking Education Provided: Yes Frequency of alcohol use: None Drug Abuse: None Lives with: Alone Family History: Reviewed & Not Pertinent Patient has suicidal ideation: No Patient has homicidal ideation: No - Past Medical History Cardiac Medical History: Reports: Hx Hypertension Pulmonary Medical History: Reports: Hx Asthma Neurological Medical History: Reports: Hx Migraine, Hx Seizures Endocrine Medical History: Reports: Hx Diabetes Mellitus Type 2 - insulin dependent Renal/ Medical History: Reports: Hx Ovarian Cysts GI Medical History: Reports: Hx Gastroesophageal Reflux Disease Musculoskeletal Medical History: Reports Hx Arthritis Psychiatric Medical History: Reports: Hx Anxiety, Hx Depression - Immunizations Immunizations up to date: Yes Hx Diphtheria, Pertussis, Tetanus Vaccination: Yes Review of Systems - Review of Systems Notes: REVIEW OF SYSTEMS: CONSTITUTIONAL : Denies fever, chills, or sweats. Denies recent illness. EENT: Per HPI CARDIOVASCULAR: Denies chest pain. RESPIRATORY: Denies cough, cold, or chest congestion. Denies shortness of breath, difficulty breathing, or wheezing. GASTROINTESTINAL: Denies abdominal pain. Denies nausea, vomiting, or diarrhea. Denies constipation. GENITOURINARY: Denies difficulty urinating, painful urination, burning, frequency, or blood in urine. MUSCULOSKELETAL: Denies neck or back pain or joint pain or swelling. SKIN: Denies rash or skin lesions. HEMATOLOGIC : Denies easy bruising or bleeding. NEUROLOGICAL: Denies altered mental status or loss of consciousness. Denies headache. Denies weakness or paralysis or loss of use of either side. Denies problems with gait or speech. Denies sensory or motor loss. PSYCHIATRIC: Denies suicidal or homicidal ideations 10 Systems are negative unless otherwise specified above Physical Exam - Vital signs Vitals: Temp Pulse Resp BP Pulse Ox 98.6 F 79 16 145/91 H 100 09/12/19 22:56 09/12/19 22:56 09/12/19 22:56 09/12/19 22:56 09/12/19 22:56 - Notes Notes: PHYSICAL EXAMINATION: GENERAL: Well-appearing, well-nourished and in no acute distress. HEAD: Atraumatic, normocephalic. EYES: Pupils equal round and reactive to light, extraocular movements intact, sclera anicteric, conjunctiva are normal. ENT: nares patent, oropharynx clear without exudates. Moist mucous membranes. tooth #17 shows signs of erosion and mild erythema surrounding the tooth NECK: Normal range of motion, supple without lymphadenopathy, no appreciable JVD LUNGS: Lungs clear to auscultation bilaterally and equal. No wheezes rales or rhonchi. HEART: Regular rate and rhythm without murmurs ABDOMEN: Soft, nontender, normal bowel sounds. No guarding, no rebound. No masses appreciated. EXTREMITIES: Active full range of motion, no pitting or edema. No cyanosis. 2+ pulses x4 NEUROLOGICAL: No focal neurological deficits. Moves all extremities spontaneously and on command. SKIN: Warm, Dry, and intact. Normal turgor, no rashes or lesions noted. Course - Re-evaluation Re-evalutation: 09/13/19 01:26 Chest x-ray was obtained read by radiology is negative patient is not . I discussed with her the need for follow-up with dental services for management of her dentition. Patient is given initial dose of penicillin in the emergency department and 1 Zofran ODT. Patient is to be discharged home in stable condition. - Vital Signs Vital signs: Temp Pulse Resp BP Pulse Ox 98.6 F 79 16 145/91 H 100 09/13/19 00:01 09/12/19 22:56 09/12/19 22:56 09/12/19 22:56 09/12/19 22:56 - Laboratory Laboratory results interpreted by me: 09/13/19 01:04 POC Glucose 427 H* - Diagnostic Test Radiology reviewed: Reports reviewed Discharge - Discharge Clinical Impression: Dental abscess Diabetes Qualifiers: Diabetes mellitus type: other specified (including MICHELLE) Diabetes mellitus [employer] insulin use: with [employer] use Diabetes mellitus complication status: without complication Qualified Code(s): E13.9 - Other specified diabetes mellitus without complications Condition: Stable Disposition: HOME, SELF-CARE Instructions: Abscess ([facility]) Additional Instructions: Dental Infection or Abscess You have an infection, perhaps an abscess (pus formation) of the gum around one of your teeth, which is probably decayed. If there is an abscess, it may drain on its own or it may need to be opened or lanced. Severe swelling or drainage around a tooth usually means a deep dental abscess which usually requires evaluation and treatment by a dentist or oral surgeon. Antibiotics may be prescribed while awaiting dental treatment. If you develop high fever with chills, worsening pain, or increasing swelling in the area, see a dentist or oral surgeon immediately or return to the Emergency Department immediately. Prescriptions: Penicillin V Potassium [Penicillin Vk 500 mg Tablet] 500 mg PO BID #20 tablet Oxycodone HCl/Acetaminophen [Percocet 5-325 mg Tablet] 1 - 2 tab PO Q4H PRN #7 tablet PRN Reason:
[2019-09-13 02:23] VITALS: BP 132/62
== END 2019-09-13 02:39 | disposition home or self-care (01) ==
LOC: ER 22:39
DX: K04.7 Periapical abscess without sinus (principal); R51 Headache; F17.210 Nicotine dependence, cigarettes, uncomplicated; E13.9 Other specified diabetes mellitus without complications; I10 Essential (primary) hypertension; Z88.6 Allergy status to analgesic agent; Z79.4 Long term (current) use of insulin
CPT/HCPCS: 99284; 82962; 81025; 71045; S0119; J3490

== ENCOUNTER 2019-12-25 03:26 | Emergency (ER) | payer MEDICAID ==
--- NOTE | 2019-12-25 06:01 | ER Document Report ---
ED Oral Problem - General Chief Complaint: Toothache Stated Complaint: TOOTH PAIN/ABSCESS Time Seen by Provider: 12/25/19 05:07 Notes: CHIEF COMPLAINT: Toothache and test HPI: 29-year-old female presenting to the emergency department complaining of a toothache lower central front teeth. States she has been on penicillin for 1 day only started the medication yesterday which she obtained from [facility]. Patient has had problems with her teeth for over a year. States she is waiting on a specific dental office in [facility] who will sedate her and take Medicaid in order to have her teeth pulled. Patient states that she also would like a test today. States that she believes she was in October and had vaginal bleeding and believes that she miscarried. No abdominal pain or pelvic pain. Has not had any bleeding in the last week. [facility] with [facility] but has not seen them for a test. States she took 1 at home last week and it was only faintly positive so would like another one to night. ROS: See HPI - all other systems were reviewed and are otherwise negative Constitutional: no fever Eyes: no drainage, no blurred vision ENT: no runny nose, no sore throat, positive dental pain Cardiovascular: no chest pain Resp: no SOB, no cough GI: no vomiting, no diarrhea, no abdominal pain : no dysuria Integumentary: no rash Allergy: no hives Musculoskeletal: no extremity pain or swelling Neurological: no numbness/tingling, no weakness MEDICATIONS: I agree with the patient medications as charted by the RN. ALLERGIES: I agree with the allergies as charted by the RN. PAST MEDICAL HISTORY/PAST SURGICAL HISTORY: Reviewed and agree as charted by RN. SOCIAL HISTORY: Reviewed and agree as charted by RN. FAMILY HISTORY: No significant familial comorbid conditions directly related to patient complaint EXAM: Reviewed vital signs as charted by RN. CONSTITUTIONAL: Alert and oriented and responds appropriately to questions. Well-appearing; well-nourished HEAD: Normocephalic; atraumatic EYES: PERRL; Conjunctivae clear, sclerae non-icteric ENT: normal nose; no rhinorrhea; moist mucous membranes; pharynx without lesions noted, no uvula edema or deviation, no tonsillar hypertrophy, phonation normal. Difficult to assess dentition as patient has a gold grill over the upper and lower teeth. She was unable to remove the secondary to discomfort. There does appear to be slight soft tissue swelling at the base of the right frontal lower central incisor with a small amount of purulent discharge. No sublingual swelling. No trismus. NECK: Supple without meningismus; non-tender; no cervical lymphadenopathy, no masses CARD: RRR; no murmurs, no clicks, no rubs, no gallops RESP: Normal chest excursion without splinting or tachypnea; breath sounds clear and equal bilaterally; no wheezes, no rhonchi, no rales, pulse oximetry 98% on room air not hypoxic ABD/GI: Normal bowel sounds; non-distended; soft, non-tender, no rebound, no guarding; no palpable organomegaly or masses. BACK: The back appears normal and is non-tender to palpation, there is no CVA tenderness EXT: Normal ROM in all joints; non-tender to palpation; no cyanosis, no effusions, no edema SKIN: Normal color for age and race; warm; dry; good turgor; no acute lesions noted NEURO: Moves all extremities equally; Motor and sensory function intact PSYCH: The patient's mood and manner are appropriate. Grooming and personal hygiene are appropriate. MDM: 29-year-old female presenting for dental pain only started penicillin 1 day ago but given the small amount of purulent discharge we will switch her to clindamycin. She may follow-up with [facility] who placed her initially on the penicillin, her dentist or her PCP for pain management. She would also like a test today, she has no abdominal or pelvic pain suggesting ectopic her blood type is B+ per the records. She is not having any vaginal bleeding today. Will refer patient to her [facility] for follow-up TRAVEL OUTSIDE OF THE [place] IN LAST 30 DAYS: No - Related Data Allergies/Adverse Reactions: tramadol [Tramadol] Allergy (Unknown, Verified 03/03/19 08:10) acetaminophen [From Vicodin] Allergy (Verified 05/08/19 18:37) Bee Sting Kit *RETIRED-04/21/10 [Bee Sting Kit] Allergy (Verified 03/03/19 08:10) Coconut * [Coconut] Allergy (Verified 03/03/19 08:10) hydrocodone [From Vicodin] Allergy (Verified 05/08/19 18:37) ketorolac [From Toradol] Allergy (Verified 05/08/19 18:37) pineapple [Pineapple] Allergy (Verified 03/03/19 08:10) Home Medications: humulin, lantus, Past Medical History - Social History Smoking Status: Current Every Day Smoker Family History: Reviewed & Not Pertinent - Past Medical History Cardiac Medical History: Reports: Hx Hypertension Pulmonary Medical History: Reports: Hx Asthma Neurological Medical History: Reports: Hx Migraine, Hx Seizures Endocrine Medical History: Reports: Hx Diabetes Mellitus Type 2 - insulin dependent Renal/ Medical History: Reports: Hx Ovarian Cysts GI Medical History: Reports: Hx Gastroesophageal Reflux Disease Musculoskeletal Medical History: Reports Hx Arthritis Psychiatric Medical History: Reports: Hx Anxiety, Hx Depression - Immunizations Immunizations up to date: Yes Hx Diphtheria, Pertussis, Tetanus Vaccination: Yes Physical Exam - Vital signs Vitals: Temp Pulse Resp BP Pulse Ox 99.6 F 97 17 147/123 H 95 12/25/19 03:33 12/25/19 03:33 12/25/19 03:33 12/25/19 03:33 12/25/19 03:33 Course - Re-evaluation Re-evalutation: 12/25/19 06:19 Patient's test is negative will discharge to follow-up with [facility] - Vital Signs Vital signs: Temp Pulse Resp BP Pulse Ox 99.6 F 93 16 128/84 H 94 12/25/19 03:33 12/25/19 04:38 12/25/19 04:38 12/25/19 04:38 12/25/19 04:38 - Laboratory Laboratory results interpreted by me: 12/25/19 04:39 POC Glucose 230 H Discharge - Discharge Clinical Impression: Pain due to dental caries, test negative Condition: Stable Disposition: HOME, SELF-CARE Additional Instructions: Your test tonight was negative follow-up with your [facility] for further evaluation and management. Stop the penicillin start the clindamycin for your dental issues. Follow-up with either your dentist, your primary care provider or [facility] for pain management issues of this chronic ongoing problem. Prescriptions: Clindamycin HCl [Cleocin 150 mg Capsule] 150 mg PO Q6 #40 capsule
[2019-12-25 06:51] VITALS: BP 136/76
== END 2019-12-25 06:50 | disposition home or self-care (01) ==
LOC: ER 03:26
DX: Z32.02 Encounter for pregnancy test, result negative (principal); K02.9 Dental caries, unspecified; K08.89 Other specified disorders of teeth and supporting structures; Z88.8 Allergy status to other drugs, medicaments and biological substances; F17.200 Nicotine dependence, unspecified, uncomplicated; I10 Essential (primary) hypertension; J45.909 Unspecified asthma, uncomplicated; E11.9 Type 2 diabetes mellitus without complications; Z79.4 Long term (current) use of insulin
CPT/HCPCS: 81025; 82962; 99283

== ENCOUNTER 2020-04-03 18:19 | Emergency (ER) | payer MEDICAID ==
[2020-04-03 18:26] VITALS: BP 117/83
--- NOTE | 2020-04-03 19:34 | ER Document Report ---
HPI - HPI Time Seen by Provider: 04/03/20 19:20 Pain Level: Denies Notes: 29-year-old female with history of asthma presenting to the emergency department with complaints of cough, congestion and shortness of breath. Patient reports history of asthma, states she was exposed to Covid yesterday. She denies any fever, chills, nausea, vomiting or diarrhea. - ROS Systems Reviewed and Negative: Yes All other systems reviewed and negative - EENT EENT: REPORTS: Congestion - RESPIRATORY Respiratory: REPORTS: Trouble Breathing, Coughing - REPRODUCTIVE Reproductive: REPORTS: : Past Medical History - General Information source: Patient - Social History Smoking Status: Current Every Day Smoker Family History: Reviewed & Not Pertinent - Past Medical History Cardiac Medical History: Reports: Hx Hypertension Pulmonary Medical History: Reports: Hx Asthma Neurological Medical History: Reports: Hx Migraine, Hx Seizures Endocrine Medical History: Reports: Hx Diabetes Mellitus Type 2 - insulin dependent Renal/ Medical History: Reports: Hx Ovarian Cysts GI Medical History: Reports: Hx Gastroesophageal Reflux Disease Musculoskeletal Medical History: Reports Hx Arthritis Psychiatric Medical History: Reports: Hx Anxiety, Hx Depression - Immunizations Immunizations up to date: Yes Hx Diphtheria, Pertussis, Tetanus Vaccination: Yes Vertical Provider Document - CONSTITUTIONAL Notes: PHYSICAL EXAMINATION: GENERAL: Well-appearing, well-nourished and in no acute distress. HEAD: Atraumatic, normocephalic. EYES: Pupils equal round extraocular movements intact, conjunctiva are normal. ENT: Nares patent, lung sounds clear and equal bilaterally. NECK: Normal range of motion LUNGS: No respiratory distress Musculoskeletal: Normal range of motion NEUROLOGICAL: Normal speech, normal gait. PSYCH: Normal mood, normal affect. SKIN: Warm, Dry, normal turgor, no rashes or lesions noted. - INFECTION CONTROL TRAVEL OUTSIDE OF THE [place] IN LAST 30 DAYS: No Course - Re-evaluation Re-evalutation: Patient appears well, nontoxic, Covid test pending. Patient be discharged home on a course of prednisone. Patient agreeable to this plan. - Vital Signs Vital signs: Temp Pulse Resp BP Pulse Ox 98.7 F 88 16 117/83 98 04/03/20 18:25 04/03/20 18:25 04/03/20 18:25 04/03/20 18:25 04/03/20 18:25 - Laboratory Results Critical Laboratory Results Reviewed: No Critical Results - Radiology Results Critical Radiology Results Reviewed: No Critical Results Discharge - Discharge Clinical Impression: Encounter for laboratory testing for COVID-19 virus Condition: Stable Disposition: HOME, SELF-CARE Additional Instructions: Push fluids. Get plenty of rest. Tylenol or Motrin for fever and body aches. Good handwashing and stay away from others. Quarantine until you have received your COVID-19 results. Return to the emergency department with any new or worsening symptoms such as difficulty breathing, or any other worsening symptoms. Prescriptions: Prednisone [Deltasone 20 mg Tablet] 3 tab PO DAILY 5 Days #15 tablet Forms: Return to Work Referrals: MONICA HUSSEIN PA-C [Primary Care Provider] - Follow up as needed
== END 2020-04-03 19:56 | disposition home or self-care (01) ==
LOC: ER 18:19
DX: O26.899 Other specified pregnancy related conditions, unspecified trimester (principal); R05 Cough; R06.02 Shortness of breath; O99.519 Diseases of the respiratory system complicating pregnancy, unspecified trimester; J45.909 Unspecified asthma, uncomplicated; O16.9 Unspecified maternal hypertension, unspecified trimester; O99.330 Smoking (tobacco) complicating pregnancy, unspecified trimester; F17.200 Nicotine dependence, unspecified, uncomplicated; Z3A.00 Weeks of gestation of pregnancy not specified; Z20.822 Contact with and (suspected) exposure to COVID-19
CPT/HCPCS: 99283; 87635; C9803; 36415